=== PATIENT | male | born 1930 | race Caucasian/White ===

== ENCOUNTER 2017-03-20 08:20 | Observation (INO) ==
[2017-03-20 08:49] LABS: Mean Corpuscular Hemoglobin 28.9 pg (28.0-33.3)
[2017-03-20 08:50] LABS: Hematocrit 38.7 % (37.5-50.1); Hemoglobin 13.2 g/dL (12.9-16.9); Immature Platelets 2.6 % (1.1-6.1); Mean Corpuscular HGB Conc 34.1 g/dL (31.6-35.5); Mean Corpuscular Volume 84.7 fL (83.0-100.0); Mean Platelet Volume 9.9 fL (9.4-12.4); Red Blood Count 4.57 M/mcL (4.19-5.50); Red Cell Distribution Width 14.1 % (11.5-14.5)
[2017-03-20 08:52] LABS: Platelet Count 81 K/mcL (140-400)
[2017-03-20 09:02] LABS: Calcium 9.8 mg/dL (8.6-10.8); Potassium 4.2 mEq/L (3.5-4.5)
[2017-03-20 09:07] LABS: INR 1.2; Prothrombin Time 12.6 Seconds (9.4-12.1)
[2017-03-20 09:08] LABS: Lymphocytes # 1.5 K/mcL (0.6-4.6); Monocytes # 0.1 K/mcL (0.0-1.3); Neutrophils # 5.2 K/mcL (1.6-8.9)
[2017-03-20 09:09] LABS: Platelet Estimate Marked Decrease (Normal); Polychromasia 1+ (Not Present)
[2017-03-20 09:10] LABS: Activated Partial Thrombo Time 34.6 Seconds (26.0-36.0)
--- NOTE | 2017-03-20 09:30 | Emergency Department Note ---
Disposition Clinical Impression: Chest pain, rule out acute myocardial infarction Disposition: Admitted As Inpatient Condition: Good Instructions: Chest Pain (ED) Referrals: Pa,Maryanne Baker CNP [Primary Care Provider] - Time of Disposition: 09:20 Chest Pain HPI - General Chief Complaint: ED Chest Pain Stated Complaint: chest pain Time Seen by Provider: 03/20/17 08:28 Source: patient Mode of arrival: ambulatory Limitations: no limitations Vital Signs Reviewed: Yes Nursing Notes Reviewed: Yes - History of Present Illness HPI Narrative: 86-year-old male presents emergency Department with concerns of acute onset chest pain. Patient states pain started acutely today, described as an 8 out of 10 in the center of his chest that did not radiate. Patient states this feels similar to his chest pain prior to his four-vessel CABG. Patient noted pain improved after taking nitroglycerin. He had an eructation and mild nausea but did not vomit. Patient denies diaphoresis. Patient denies recent changes in his medications, fever, chills, abdominal pain, diarrhea. He follows Dr. Henderson for cardiology. Patient takes Plavix and aspirin at home but denies other anticoagulant medications. Patient also notes that he is dyspneic on exertion, only able to walk about 500 feet which is worse for him over the past 2 weeks. Severity scale (1-10): 8 - Related Data Home Medications Medication Instructions Recorded Confirmed Aspirin Enteric Coated [Aspirin EC] 81 mg PO DAILY 11/27/14 02/10/15 Cholecalciferol (Vitamin D3) 5,000 unit PO DAILY 11/27/14 02/10/15 [Vitamin D] Clopidogrel [Plavix] 75 mg PO DAILY 11/27/14 02/10/15 Garlic [Garlic Oil] 1,000 mg PO DAILY 11/27/14 02/10/15 Gemfibrozil [Lopid] 600 mg PO BID 11/27/14 02/10/15 GlyBURIDE 2 mg PO DAILY 11/27/14 02/10/15 Lansoprazole [Prevacid] 30 mg PO DAILY 11/27/14 02/10/15 Levothyroxine Sodium [Synthroid] 100 mcg PO DAILY 11/27/14 02/10/15 Lisinopril [Zestril] 20 mg PO BID 11/27/14 02/10/15 Metoprolol Tartrate [Lopressor] 75 mg PO 1-2XD 11/27/14 02/10/15 NIFEdipine [Nifedipine ER] 30 mg PO DAILY 11/27/14 02/10/15 Nitroglycerin [Nitrostat] 0.4 mg SL [id number] PRN 11/27/14 02/10/15 Pantoprazole Sodium [Protonix] 40 mg PO DAILY 11/27/14 02/10/15 Repaglinide [Prandin] 2 mg PO DAILY 11/27/14 02/10/15 Hydrochlorothiazide [Microzide] 12.5 mg PO DAILY 02/10/15 02/10/15 Atorvastatin [Lipitor] 40 mg PO HS 03/10/15 03/10/15 Allergies Allergy/AdvReac Type Severity Reaction Status Date / Time pseudoephedrine AdvReac Shakiness Verified 03/20/17 08:25 [From Sudafed] triprolidine [From Actifed] AdvReac Shakiness Verified 03/20/17 08:25 All systems ED: reviewed and negative except as stated. Review of Systems: As Per HPI Constitutional: Denies: fever Cardiovascular: Reports: chest pain, dyspnea on exertion. Denies: palpitations Chest Pain PMH - Past Medical History Medical history: Reports: arthritis, cancer, coronary artery disease, diabetes, GERD, hyperlipidemia, hypertension, myocardial infarction, renal disease, thyroid disease Surgical history: Reports: cancer surgery, carotid endarterectomy, coronary bypass (CABG) Psychiatric history: Reports: no psych history - Social History Smoking Status: Former smoker Alcohol use: Reports: none Drug use: Reports: none Physical Exam General: Alert and in no acute distress Skin: Warm, dry, intact Head: Normocephalic and atraumatic Neck: Supple, trachea midline and no tenderness Cardiovascular: RRR, no murmur, normal perfusion Respiratory: CTAB, no wheezing, cough, or respiratory distress Musculoskeletal: Normal strength, no tenderness, swelling or deformity GI: Soft, nontender, nondistended. Bowel sounds present Neuro: A&O to person, place, time and situation. No focal deficits noted on exam Psychiatric: cooperative and appropriate mood and affect. - General Limitations: no limitations General appearance: alert Course Vital Signs Temperature 98 F 03/20/17 08:26 Pulse Rate 64 03/20/17 08:26 Respiratory Rate 20 03/20/17 08:26 Blood Pressure 155/69 03/20/17 08:26 O2 Sat by Pulse Oximetry 97 03/20/17 08:26 Temperature 98 F 03/20/17 08:26 Pulse Rate 64 03/20/17 09:10 Respiratory Rate 18 03/20/17 09:10 Blood Pressure 160/68 03/20/17 09:10 O2 Sat by Pulse Oximetry 98 03/20/17 09:10 Oxygen Delivery Oxygen Delivery Room Air Chest Pain - MDM Narrative Medical decision making narrative: Patient has multiple cardiac risk factors. He will be admitted for further evaluation of his acute chest pain to rule out ACS. - Medical Records Medical records reviewed: Yes I reviewed the patient's medical records. - Lab Data Lab results reviewed: Yes I reviewed the patient's lab results. Result diagrams: 03/20/17 08:39 03/20/17 08:39 Lab Results 03/20/17 03/20/17 03/20/17 Range/Units 08:39 08:39 08:39 WBC 6.9 (4.3-11.1) K/mcL RBC 4.57 (4.19-5.50) M/mcL Hgb 13.2 (12.9-16.9) g/dL Hct 38.7 (37.5-50.1) % MCV 84.7 (83.0-100.0) fL MCH 28.9 (28.0-33.3) pg MCHC 34.1 (31.6-35.5) g/dL RDW 14.1 (11.5-14.5) % Plt Count 81 L (140-400) K/mcL MPV 9.9 (9.4-12.4) fL Seg Neutrophils % 76.0 % Lymphocytes % 22.0 % Monocytes % 2.0 % Neutrophils # 5.2 (1.6-8.9) K/mcL Lymphocytes # 1.5 (0.6-4.6) K/mcL Monocytes # 0.1 (0.0-1.3) K/mcL Platelet Estimate Marked Decrease L (Normal) Immature Plt Fraction 2.6 (1.1-6.1) % Polychromasia 1+ A (Not Present) PT (9.4-12.1) Seconds INR APTT (26.0-36.0) Seconds Sodium 134 L (136-145) mEq/L Potassium 4.2 (3.5-4.5) mEq/L Chloride 101 (98-109) mEq/L Carbon Dioxide 21 (19-29) mEq/L BUN 37 H (8-26) mg/dL Creatinine 1.87 H (0.72-1.25) mg/dL Est GFR ( Amer) 42 L (> 60) Est GFR (Non-Af Amer) 34 L (> 60) BUN/Creatinine Ratio 20 (6-26) Glucose 369 H (70-99) mg/dL Calculated Osmolality 302 H (280-300) Calcium 9.8 (8.6-10.8) mg/dL Troponin I 0.02 (0-0.03) ng/mL Specimen Rejected 03/20/17 03/20/17 Range/Units 08:39 08:55 WBC (4.3-11.1) K/mcL RBC (4.19-5.50) M/mcL Hgb (12.9-16.9) g/dL Hct (37.5-50.1) % MCV (83.0-100.0) fL MCH (28.0-33.3) pg MCHC (31.6-35.5) g/dL RDW (11.5-14.5) % Plt Count (140-400) K/mcL MPV (9.4-12.4) fL Seg Neutrophils % % Lymphocytes % % Monocytes % % Neutrophils # (1.6-8.9) K/mcL Lymphocytes # (0.6-4.6) K/mcL Monocytes # (0.0-1.3) K/mcL Platelet Estimate (Normal) Immature Plt Fraction (1.1-6.1) % Polychromasia (Not Present) PT 12.6 H (9.4-12.1) Seconds INR 1.2 APTT 34.6 (26.0-36.0) Seconds Sodium (136-145) mEq/L Potassium (3.5-4.5) mEq/L Chloride (98-109) mEq/L Carbon Dioxide (19-29) mEq/L BUN (8-26) mg/dL Creatinine (0.72-1.25) mg/dL Est GFR ( Amer) (> 60) Est GFR (Non-Af Amer) (> 60) BUN/Creatinine Ratio (6-26) Glucose (70-99) mg/dL Calculated Osmolality (280-300) Calcium (8.6-10.8) mg/dL Troponin I (0-0.03) ng/mL Specimen Rejected Volume - Radiology Data Radiology results reviewed: Yes I reviewed the patient's radiology results. Heart Score - Score History: Moderately Suspicious EKG: Normal Age: Greater than 65 Risk Factors: Equal/Greater than 3 risk factor or history of atherosclerotic disease Troponin: Less than normal limit HEART Score Total: 5
--- NOTE | 2017-03-20 10:18 | Internal Med History&Physical ---
Date of Encounter: 03/20/17 Time of Encounter: 10:08 Assessment and Plan (1) Chest pain, rule out acute myocardial infarction Current visit: Yes Status: Acute 86/male Patient has ongoing chest pain for more than 48 hours. Extensive cardiac history. Plan: Admit as observation. Cycle troponin. Echocardiogram Cardiac diet. If troponin positive/abnormal echocardiogram: Please call cardiology. If troponin negative/normal echocardiogram: Please let Dr. Henderson note that this patient is hospitalized and please discuss patient with him. (2) CAD (coronary artery disease) Current visit: Yes Status: Acute At the time of examination patient did not have any chest pain. Stable coronary artery disease Qualifiers: Coronary Disease-Associated Artery/Lesion type: [place] artery [place] vs. transplanted heart: [place] heart Associated angina: angina presence unspecified Qualified Code(s): I25.10 - Atherosclerotic heart disease of [place] coronary artery without angina pectoris (3) Hypertension Current visit: Yes Status: Acute Blood pressure is within acceptable range. We will continue to monitor blood pressure very closely. Qualifiers: Hypertension type: essential hypertension Qualified Code(s): I10 - Essential (primary) hypertension (4) Thrombocytopenia Current visit: No Status: Acute Secondary to ITP (5) ITP (idiopathic thrombocytopenic purpura) Current visit: No Status: Acute Stable (6) DVT prophylaxis Current visit: Yes Status: Acute SCD Medical decision making this patient has a moderate to severe risk of worsening in spite of being on appropriate medication due to the underlying complex comorbid issues. Internal Medicine - H&P: HPI Chief complaint: chest pain Admitted From: Emergency Dept Plans for Post Hospital Care: Home History of present illness: 86/M, [place] PCP : AZRA Madden Winn Cardiology: Dr Henderson Brief PMH: arthritis, cancer, coronary artery disease, diabetes, GERD, hyperlipidemia, hypertension, myocardial infarction, renal disease, thyroid disease, carotid endarterectomy, coronary bypass (CABG) HPI: Ongoing chest pain for past 3 days. Central location, associated with radiation to arm and shoulder. Pin releived by NTG and rest. Denies SOB, Abdominal pain, nausea, vomiting or diarrhea. Came to ER for worsening chest pain and restrictive movements in last 2 weeks. Work up in ER: Thrombocytopenia, Elevated Created Creatinine and Glucose, normal EKG and troponin, CXR: WNL Reason for admission : Chest pain to Rule out ACS. Family history : 3 brothers were in [place] Past Med Surg Social Fam HX - Past Medical History Medical history: arthritis, cancer, coronary artery disease, diabetes, GERD, hyperlipidemia, hypertension, myocardial infarction, renal disease, thyroid disease Psychiatric history: no psych history - Past Surgical History Surgical History: cancer surgery, carotid endarterectomy, coronary bypass (CABG) - Social History Smoking Status: Former smoker Smokeless Tobacco Status: No Alcohol use: none Drug use: none Internal Medicine - H&P: Meds Aspirin Enteric Coated [Aspirin EC] 81 mg PO DAILY 11/27/14 [History] Cholecalciferol (Vitamin D3) [Vitamin D] 5,000 unit PO DAILY 11/27/14 [History] Clopidogrel [Plavix] 75 mg PO DAILY 11/27/14 [History] Garlic [Garlic Oil] 1,000 mg PO DAILY 11/27/14 [History] Gemfibrozil [Lopid] 600 mg PO BID 11/27/14 [History] Levothyroxine Sodium [Synthroid] 100 mcg PO DAILY 11/27/14 [History] Metoprolol Tartrate [Lopressor] 75 mg PO 1-2XD 11/27/14 [History] NIFEdipine [Nifedipine ER] 30 mg PO DAILY 11/27/14 [History] Nitroglycerin [Nitrostat] 0.4 mg SL [id number] PRN 11/27/14 [History] Pantoprazole Sodium [Protonix] 40 mg PO DAILY 11/27/14 [History] Hydrochlorothiazide [Microzide] 12.5 mg PO DAILY 02/10/15 [History] Atorvastatin [Lipitor] 40 mg PO HS 03/10/15 [History] Glimepiride [Amaryl] 2 mg PO QPM 03/20/17 [History] Glimepiride [Amaryl] 3 mg PO QAM 03/20/17 [History] Linagliptin [Tradjenta] 5 mg PO DAILY 03/20/17 [History] 3 Allergy/AdvReac Type Severity Reaction Status Date / Time pseudoephedrine AdvReac Shakiness Verified 03/20/17 08:25 [From Sudafed] triprolidine [From Actifed] AdvReac Shakiness Verified 03/20/17 08:25 All Systems PM: A 10-system review of systems was performed and is negative for pertinent findings except as documented above in the HPI. - Constitutional Constitutional: no chills, no fever(s), no night sweats - EENT Eyes: no change in vision, no discharge, no pain, no photophobia Ears: no ear discharge, no ear pain, no tinnitus Nose, mouth and throat: no dysphagia, no nasal discharge, no neck pain, no sore throat - Cardiovascular Cardiovascular ROS IM: chest pain, diaphoresis, lightheadedness, no dyspnea, no palpitations, no syncope - Respiratory Respiratory: no cough, no dyspnea, no wheezing, no excessive phlegm production - Gastrointestinal Gastrointestinal: no abdominal pain, no diarrhea, no hematemesis, no hematochezia, no melena, no nausea, no vomiting - Musculoskeletal Musculoskeletal ROS IM: no numbness, no tingling - Integumentary Integumentary IM: no rash, no unusual bruising - Neurological Neurological ROS: no confusion, no convulsions, no focal weakness, no numbness, no tingling, no tremor(s) - Hematologic/Lymphatic Hematologic/Lymphatic: no easy bruising - Constitutional Vitals: Temp Pulse Resp BP Pulse Ox 98 F 64 18 157/94 98 03/20/17 08:26 03/20/17 09:10 03/20/17 10:01 03/20/17 10:01 03/20/17 09:10 General appearance: Present: A&O X 3, pleasant, no acute distress, answers questions appropriately - Head Head exam: Present: atraumatic, normocephalic - Eye Eye exam: Present: PERRL, conjuntiva pink, sclera anicteric Pupils: Present: PERRL - Neck Neck exam general surgery: Present: supple, trachea midline. Absent: lymphadenopathy - Respiratory Respiratory exam: Present: CTAB. Absent: accessory muscle use, rales, rhonchi, wheezes - Cardiovascular Cardiovascular exam: Present: RRR, +S1, +S2. Absent: diastolic murmur, gallop, rubs, systolic murmur - GI/Abdominal GI/Abdominal exam: Present: normal bowel sounds, soft, no peritoneal signs. Absent: distended, tenderness - Extremities Exam Extremities exam: Present: warm, radial pulses palpable and symmetrical. Absent : calf tenderness, cyanotic, pedal edema - Neurological Exam Neurological exam: Present: CN II-XII intact, oriented X3, no focal deficits. Absent: pronater drift, facial droop, speech deficit - Skin Skin exam: Present: dry, intact Internal Med - H&P Results - Labs CBC & Chem 7: 03/20/17 08:39 03/20/17 08:39
[2017-03-20] MEDS ORDERED: Naloxone 0.4 MG/ML INJ IVP PRN (11:50)
[2017-03-20] MEDS: Nitroglycerin 0.4 MG TAB.SUBL SL SCH (12:47)
[2017-03-20] MEDS ORDERED: Dextrose Gel 15 GM PO PRN ×2 (19:55)
[2017-03-20] MEDS ORDERED: *HR* Dextrose 50 % in Water (Syg) 50 ML SYRINGE IVP PRN (19:55)
[2017-03-20] MEDS ORDERED: D5% in Water 1,000 ML IVC PRN (19:55)
[2017-03-20] MEDS: Insulin LISPRO 300 UNITS/3 ML VIAL SQ SCH (21:01)
[2017-03-21 00:51] LABS: Basophils % 0.7 %; Red Blood Count 4.17 M/mcL (4.19-5.50)
[2017-03-21 00:53] LABS: Eosinophils # 0.4 K/mcL (0.0-0.6); Eosinophils % 7.4 %; Hematocrit 35.4 % (37.5-50.1); Hemoglobin 12.1 g/dL (12.9-16.9); Immature Granulocytes % 0.5 % (0-4); Immature Platelets 3.2 % (1.1-6.1); Lymphocytes # 1.6 K/mcL (0.6-4.6); Lymphocytes % 28.6 %; Mean Corpuscular HGB Conc 34.2 g/dL (31.6-35.5); Mean Corpuscular Volume 84.9 fL (83.0-100.0); Monocytes # 0.4 K/mcL (0.0-1.3); Monocytes % 6.7 %; Neutrophils # 3.1 K/mcL (1.6-8.9); Red Cell Distribution Width 14.1 % (11.5-14.5); Segmented Neutrophils % 56.1 %
[2017-03-21 00:55] LABS: INR 1.2; Prothrombin Time 12.7 Seconds (9.4-12.1)
[2017-03-21 00:57] LABS: Activated Partial Thrombo Time 33.4 Seconds (26.0-36.0)
[2017-03-21 01:06] LABS: Albumin 3.5 g/dL (3.5-5.0); Albumin/Globulin Ratio 1.1 (1.1-2.2); Bilirubin,Total 0.4 mg/dL (0.2-1.2); Calcium 9.5 mg/dL (8.6-10.8); Chol/HDL Ratio 4.9 (0-4.9); Globulin 3.1 g/dL (2.4-3.5); Magnesium 1.9 mg/dL (1.6-2.6); Phosphorous 2.5 mg/dL (2.3-4.7); Potassium 3.5 mEq/L (3.5-4.5); Total Protein 6.6 g/dL (6.0-8.3)
[2017-03-21 01:42] LABS: Platelet Count 73 K/mcL (140-400)
[2017-03-21] MEDS: Aspirin Enteric Coated 81 MG Tablet PO SCH (08:08)
[2017-03-21] MEDS: Insulin LISPRO 300 UNITS/3 ML VIAL SQ SCH ×4 (08:08→20:22)
[2017-03-21] MEDS: hydroCHLOROthiazide 25 MG TABLET PO SCH (08:09)
[2017-03-21] MEDS: NIFEdipine XL (24 HR) 30 MG TAB.ER.24 PO SCH (08:09)
[2017-03-21] MEDS: GARLIC 1000 MG PO SCH (08:10)
[2017-03-21] MEDS: Cholecalciferol (D-3) 1,000 UNIT TABLET PO SCH (08:10)
[2017-03-21] MEDS: Nitroglycerin 0.4 MG TAB.SUBL SL SCH (12:54)
--- NOTE | 2017-03-21 12:56 | Internal Med Progress Note ---
Date of Encounter: 03/21/17 Time of Encounter: 12:54 - Assessment and plan (1) CAD (coronary artery disease) Current Visit: Yes Status: Acute Assessment and plan: hx four-vessel CABG. Now with chest pain that woke him from sleep, similar to previous cardiac event. EKG without acute ST changes, serial troponin negative. Cardiology consulted with advanced age, comorbidities and significant cardiac history. Echocardiogram pending. Qualifiers: Coronary Disease-Associated Artery/Lesion type: [place] artery [place] vs. transplanted heart: [place] heart Associated angina: angina presence unspecified Qualified Code(s): I25.10 - Atherosclerotic heart disease of [place] coronary artery without angina pectoris (2) ITP (idiopathic thrombocytopenic purpura) Current Visit: No Status: Acute Assessment and plan: per hx. PLTs 71 which appeared to be at baseline. (3) Hypertension Current Visit: Yes Status: Acute Assessment and plan: per hx. BP controlled. Continue home BP medication. Monitor BP and titrate PRN Qualifiers: Hypertension type: essential hypertension Qualified Code(s): I10 - Essential (primary) hypertension (4) DVT prophylaxis Current Visit: Yes Status: Acute Assessment and plan: SCD - Subjective Interval history: Seen and examined at bedside. Patient is new to me, information obtained from chart review and patient report. Patient says he feels back to baseline now has not had anymore chest pain. He tells me chest pain woke him from sleep the other night. No shortness of breath. Says he feels back to baseline now. No chest pain or shortness of breath on my exam. - Constitutional Vitals: Temp Pulse Resp BP Pulse Ox 98 F 81 16 121/62 98 03/21/17 11:26 03/21/17 11:26 03/21/17 11:26 03/21/17 11:26 03/21/17 11:26 General appearance: Present: cachectic, A&O X 3, pleasant, no acute distress, answers questions appropriately - Head Head exam: Present: atraumatic, normocephalic - Eye Eye exam: Present: PERRL, conjuntiva pink, sclera anicteric Pupils: Present: PERRL - Neck Neck exam general surgery: Present: supple, trachea midline. Absent: lymphadenopathy - Respiratory Respiratory exam: Present: CTAB. Absent: accessory muscle use, rales, rhonchi, wheezes - Cardiovascular Cardiovascular exam: Present: RRR, +S1, +S2. Absent: diastolic murmur, gallop, rubs, systolic murmur - GI/Abdominal GI/Abdominal exam: Present: normal bowel sounds, soft, no peritoneal signs. Absent: distended, tenderness - Extremities Exam Extremities exam: Present: warm, radial pulses palpable and symmetrical. Absent : calf tenderness, cyanotic, pedal edema - Neurological Exam Neurological exam: Present: CN II-XII intact, oriented X3, no focal deficits. Absent: pronater drift, facial droop, speech deficit - Skin Skin exam: Present: dry, intact Internal Medicine: Result - Labs CBC & Chem 7: 03/21/17 00:20 03/21/17 00:20 Labs: Short CBC 03/21/17 Range/Units 00:20 WBC 5.6 (4.3-11.1) K/mcL Hgb 12.1 L (12.9-16.9) g/dL Hct 35.4 L (37.5-50.1) % Plt Count 73 L (140-400) K/mcL Neutrophils # 3.1 (1.6-8.9) K/mcL BMP 03/21/17 00:20 Sodium 139 Potassium 3.5 Chloride 105 Carbon Dioxide 23 BUN 42 H Creatinine 1.79 H Glucose 167 H Calcium 9.5 Cardiac Enzymes 03/20/17 03/20/17 03/21/17 Range/Units 12:09 17:27 00:20 Troponin I 0.01 0.02 0.02 (0-0.03) ng/mL Liver Function 03/21/17 Range/Units 00:20 Total Bilirubin 0.4 (0.2-1.2) mg/dL AST 15 (5-34) Units/L ALT 12 (0-55) Units/L Alkaline Phosphatase 107 (38-126) Units/L Albumin 3.5 (3.5-5.0) g/dL - ABG Interpretation ABG results: PT/INR, D-dimer PT 12.7 Seconds (9.4-12.1) H 03/21/17 00:20 Consult Discharge Plan - Plan Referrals: Pa,Maryanne Baker CNP [Primary Care Provider] -
[2017-03-22 04:54] LABS: Hemoglobin 11.7 g/dL (12.9-16.9)
[2017-03-22 04:55] LABS: Immature Platelets 2.7 % (1.1-6.1); Mean Corpuscular HGB Conc 33.4 g/dL (31.6-35.5); Mean Corpuscular Hemoglobin 28.7 pg (28.0-33.3); Mean Corpuscular Volume 85.8 fL (83.0-100.0); Red Blood Count 4.08 M/mcL (4.19-5.50)
[2017-03-22 04:57] LABS: Calcium 9.5 mg/dL (8.6-10.8)
[2017-03-22] MEDS ORDERED: Regadenoson 0.4 MG/5 ML SYRINGE IVP ONE (06:34)
[2017-03-22] MEDS: NIFEdipine XL (24 HR) 30 MG TAB.ER.24 PO SCH (10:25)
[2017-03-22] MEDS: Aspirin Enteric Coated 81 MG Tablet PO SCH (10:27)
[2017-03-22] MEDS: GARLIC 1000 MG PO SCH (10:28)
[2017-03-22] MEDS: Cholecalciferol (D-3) 1,000 UNIT TABLET PO SCH (10:28)
[2017-03-22] MEDS: Insulin LISPRO 300 UNITS/3 ML VIAL SQ SCH ×2 (10:31→12:56)
[2017-03-22] MEDS: hydroCHLOROthiazide 25 MG TABLET PO SCH (10:35)
--- NOTE | 2017-03-22 12:09 | Internal Med Progress Note ---
Date of Encounter: 03/22/17 Time of Encounter: 12:06 - Assessment and plan (1) CAD (coronary artery disease) Current Visit: Yes Status: Acute Assessment and plan: hx four-vessel CABG. Now with chest pain that woke him from sleep, similar to previous cardiac event. EKG without acute ST changes, serial troponin negative. Stress test with large size, moderate to severe intensity mostly fixed perfusion defect in the inferior and inferior lateral segments; these findings are consistent with prior infarct. Stress test also showed a mild reversibility of the entire inferior lateral segments consistent with [place]- infarct ischemia. Patient is agreeable to cardiology consultation. Continue home ASA, Plavix, BB, statin. Qualifiers: Coronary Disease-Associated Artery/Lesion type: [place] artery [place] vs. transplanted heart: [place] heart Associated angina: angina presence unspecified Qualified Code(s): I25.10 - Atherosclerotic heart disease of [place] coronary artery without angina pectoris (2) ITP (idiopathic thrombocytopenic purpura) Current Visit: No Status: Acute Assessment and plan: per hx. PLTs 71 which appeared to be at baseline. (3) Hypertension Current Visit: Yes Status: Acute Assessment and plan: per hx. BP controlled. Continue home BP medication. Monitor BP and titrate PRN Qualifiers: Hypertension type: essential hypertension Qualified Code(s): I10 - Essential (primary) hypertension (4) CKD (chronic kidney disease) Current Visit: Yes Status: Acute Assessment and plan: per hx. Cr seems to be at baseline. Avoid nephrotoxic agents as possible. Monitor repeat renal function. Qualifiers: Chronic kidney disease stage: stage 3 (moderate) Qualified Code(s): N18.3 - Chronic kidney disease, stage 3 (moderate) (5) DVT prophylaxis Current Visit: Yes Status: Acute Assessment and plan: SCD - Subjective Interval history: Seen and examined at bedside. Still says he feels at baseline and would like to go home if possible today. I reviewed stress test results with him and he is agreeable to stay for cardiology consultation discussed the possibility of a left heart catheterization and he would like to proceed with left heart catheter if that was warranted. Besides wanting to go home, he has no other complaints. - Constitutional Vitals: Temp Pulse Resp BP Pulse Ox 97.5 F L 77 16 153/70 99 03/22/17 09:24 03/22/17 09:24 03/22/17 09:24 03/22/17 09:24 03/22/17 09:24 General appearance: Present: cachectic, A&O X 3, pleasant, no acute distress, answers questions appropriately - Head Head exam: Present: atraumatic, normocephalic - Eye Eye exam: Present: PERRL, conjuntiva pink, sclera anicteric Pupils: Present: PERRL - Neck Neck exam general surgery: Present: supple, trachea midline. Absent: lymphadenopathy - Respiratory Respiratory exam: Present: CTAB. Absent: accessory muscle use, rales, rhonchi, wheezes - Cardiovascular Cardiovascular exam: Present: RRR, +S1, +S2. Absent: diastolic murmur, gallop, rubs, systolic murmur - GI/Abdominal GI/Abdominal exam: Present: normal bowel sounds, soft, no peritoneal signs. Absent: distended, tenderness - Extremities Exam Extremities exam: Present: warm, radial pulses palpable and symmetrical. Absent : calf tenderness, cyanotic, pedal edema - Neurological Exam Neurological exam: Present: CN II-XII intact, oriented X3, no focal deficits. Absent: pronater drift, facial droop, speech deficit - Skin Skin exam: Present: dry, intact Internal Medicine: Result - Labs CBC & Chem 7: 03/22/17 03:56 03/22/17 03:56 Labs: Short CBC 03/22/17 Range/Units 03:56 WBC 5.3 (4.3-11.1) K/mcL Hgb 11.7 L (12.9-16.9) g/dL Hct 35.0 L (37.5-50.1) % Plt Count 65 L (140-400) K/mcL BMP 03/22/17 03:56 Sodium 139 Potassium 4.0 Chloride 107 Carbon Dioxide 23 BUN 49 H Creatinine 1.87 H Glucose 200 H Calcium 9.5 - ABG Interpretation ABG results: PT/INR, D-dimer PT 12.7 Seconds (9.4-12.1) H 03/21/17 00:20 - Impressions Impressions Echocardiogram 03/20/17 11:55 Impressions: LVEF 60%. Normal LV chamber size, wall thickness and function. Mild left ventricular diastolic dysfunction. Atypical septal motion consistent with post-operative status. Normal right ventricular structure and function. Unable to estimate RVSP due to lack of TR jet. No significant valvular dysfunction. Left Ventricular Wall Motion: Rest Echo Findings All wall segments showed normal motion. Findings: Study Quality * Technically adequate exam. ECG Findings * Normal sinus rhythm. Left Ventricle * LVEF 60%. * Normal LV chamber size, wall thickness and function. * Mild left ventricular diastolic dysfunction. * Atypical septal motion consistent with post-operative status. Right Ventricle * Normal right ventricular structure and function. Left Atrium * Normal left atrial size. Right Atrium * Normal right atrial size. Interatrial Septum * Interatrial septum not well evaluated. Aortic Valve * Moderately thickened aortic valve leaflets. * No aortic regurgitation. * No aortic stenosis. Mitral Valve * Normal mitral valve structure and function. * No mitral stenosis. * No mitral regurgitation. Tricuspid Valve * Normal tricuspid valve structure and function. * No tricuspid regurgitation. * Unable to estimate RVSP due to lack of TR jet. Pulmonic Valve * Normal pulmonic valve structure and function. * No pulmonic regurgitation. Aorta * Normally sized aortic root. Pericardium * The pericardium appears normal. IVC * The IVC is not well evaluated. Pulmonary Artery * Normal visualized portions of the main pulmonary artery. Consult Discharge Plan - Plan Referrals: Maryanne Winn DETAIL TECHNICIAN [Primary Care Provider] -
[2017-03-22] MEDS: Nitroglycerin 0.4 MG TAB.SUBL SL SCH (12:57)
--- NOTE | 2017-03-22 14:57 | Discharge Summary ---
Date of Encounter: 03/22/17 Time of Encounter: 14:51 - Discharge Diagnosis (1) CAD (coronary artery disease) Status: Acute Qualifiers: Coronary Disease-Associated Artery/Lesion type: [place] artery [place] vs. transplanted heart: [place] heart Associated angina: angina presence unspecified Qualified Code(s): I25.10 - Atherosclerotic heart disease of [place] coronary artery without angina pectoris (2) ITP (idiopathic thrombocytopenic purpura) Status: Acute (3) Hypertension Status: Acute Qualifiers: Hypertension type: essential hypertension Qualified Code(s): I10 - Essential (primary) hypertension (4) CKD (chronic kidney disease) Status: Acute Qualifiers: Chronic kidney disease stage: stage 3 (moderate) Qualified Code(s): N18.3 - Chronic kidney disease, stage 3 (moderate) (5) DVT prophylaxis Status: Acute - Discharge Medications Prescriptions: Isosorbide MONOnitrate (24 HR) [Imdur] 30 mg PO DAILY #30 tab.er.24h Home Medications: Aspirin Enteric Coated [Aspirin EC] 81 mg PO DAILY 11/27/14 [History] Cholecalciferol (Vitamin D3) [Vitamin D] 5,000 unit PO DAILY 11/27/14 [History] Clopidogrel [Plavix] 75 mg PO DAILY 11/27/14 [History] Garlic [Garlic Oil] 1,000 mg PO DAILY 11/27/14 [History] Gemfibrozil [Lopid] 600 mg PO BID 11/27/14 [History] Levothyroxine Sodium [Synthroid] 100 mcg PO DAILY 11/27/14 [History] Metoprolol Tartrate [Lopressor] 75 mg PO 1-2XD 11/27/14 [History] NIFEdipine [Nifedipine ER] 30 mg PO DAILY 11/27/14 [History] Nitroglycerin [Nitrostat] 0.4 mg SL [id number] PRN 11/27/14 [History] Pantoprazole Sodium [Protonix] 40 mg PO DAILY 11/27/14 [History] Hydrochlorothiazide [Microzide] 12.5 mg PO DAILY 02/10/15 [History] Atorvastatin [Lipitor] 40 mg PO HS 03/10/15 [History] Glimepiride [Amaryl] 2 mg PO QPM 03/20/17 [History] Glimepiride [Amaryl] 3 mg PO QAM 03/20/17 [History] Linagliptin [Tradjenta] 5 mg PO DAILY 03/20/17 [History] Isosorbide MONOnitrate (24 HR) [Imdur] 30 mg PO DAILY #30 tab.er.24h 03/22/17 [ Rx] Allergies/Adverse Reactions: 3 Allergy/AdvReac Type Severity Reaction Status Date / Time pseudoephedrine AdvReac Shakiness Verified 03/20/17 08:25 [From Sudafed] triprolidine [From Actifed] AdvReac Shakiness Verified 03/20/17 08:25 Procedures/tests Complete & Pending: Procedures Performed prior 72 hours Category Date Time Status NM anny perf SPECT multi [NM] Routine Exams 03/22/17 06:00 Taken EV echocardiogram Routine Y 03/20/17 11:55 Completed SP pharm nuclear stress Routine Y 03/22/17 07:10 Completed Date of admission: 03/20/17 09:48 Primary care physician: Maryanne Winn CNP Consults: 03/22/17 12:03 Consult to Cardiology [CONS] Routine Comment: Consulting Provider: Delaeny Del Rosario Reason for Consult: Abnormal stress test Call Completed: Yes Discharging clinician: Marzena Astorga Anticipated date of discharge: 03/22/17 - Patient Status Disposition: Home, Self-Care Condition: Good Functional capacity at discharge: independent ambulation Overall status at discharge: patient is progressing back to baseline - Discharge Instructions Instructions: Coronary Artery Disease (DC), Isosorbide Mononitrate (By mouth) Follow Up With: Maryanne Winn CNP [Primary Care Provider] - - Diet and Activity Activity: increase activity as tolerated Diet: low fat, low cholesterol Hospital course: Mr. Winn is a 86 year old male - Time Spent with Patient Total time spent providing and/or coordinating discharge services: - Constitutional Vitals: Temp Pulse Resp BP Pulse Ox 97.4 F L 79 16 182/71 99 03/22/17 12:24 03/22/17 12:24 03/22/17 12:24 03/22/17 12:24 03/22/17 12:24 General appearance: Present: cachectic, A&O X 3, pleasant, no acute distress, answers questions appropriately
--- NOTE | 2017-03-22 15:52 | Cardiology Consult Note ---
<Lambert Jones - Last Filed: 03/22/17 15:44> Date of Encounter: 03/22/17 Time of Encounter: 15:15 Assessment and Plan (1) Abnormal stress test Current Visit: Yes Status: Acute Patient presents with chest pain waking him from his sleep. Pain not like previous SC. Troponin negative x3. EKG with no acute ST changes. Stress test: Gated EF = 72%. Large sized, moderate to severe intensity, mostly fixed perfusion defect involving the inferior and inferolateral segments. 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 There is mild reversibility of the entire inferolateral segments (SDS 3) consistent with [place]- infarct ischemia. TTE shows:LVEF 60%. Normal LV chamber size, wall thickness and function. Mild left ventricular diastolic dysfunction. Atypical septal motion consistent with post-operative status. Normal right ventricular structure and function. Unable to estimate RVSP due to lack of TR jet. No significant valvular dysfunction. H/o CABG and previous PCI. Last LHC in 2011. I discussed stress test and TTE results with patient and daughter. Mild coral- infart ischemia seen. LHC vs medical management discussed. 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 Recommend imdur 30 mg daily. Restart prilosec. Continue asa,statin, and bb, and procardia. (2) CAD (coronary artery disease) Current Visit: Yes Status: Acute H/o 3V CABG and PCI in 2011. LHC in 2012 showed 1/3 patent bypass grafts. Zheng-LAD was patent. SVG - 1st om occluded. SVG to PDA occluded. He received JETT to the 1st OM and m LCX artery. Continue asa, statin, and bb. Add imdur. Qualifiers: Coronary Disease-Associated Artery/Lesion type: [place] artery [place] vs. transplanted heart: [place] heart Associated angina: angina presence unspecified Qualified Code(s): I25.10 - Atherosclerotic heart disease of [place] coronary artery without angina pectoris Discussion w patient/family: The assessment and plan as outlined above was discussed with the patient and/or family members who expressed understanding and agreement. All questions were answered. Thank you for involving us in the care of your patient. Please call with any questions. History of Present Illness Consult date: 03/22/17 Requesting physician: Marzena Astorga Consult reason: Chest pain Chief complaint: Chest pain History of present illness: Mr. Winn is a 86 year old male with a history of 3V CABG in 2010, SC and PCI in 2011, HTN, HLD, DM type II, CKD, and thrombocytopenia who presented with chest pain waking him from his sleep at 2:00 am. He reports having a midsternal dull ache. Denies associated symptoms. He took one SL NTG without relief and had his daughter bring him to the ED. His pain relieved after he arrived to the ER. States his pain was not like his previous heart attack. His work-up included troponin that was negative x3. EKG showed no acute ST changes. TTE showed preserved LV function and no SWMA. His stress test was found to be abnormal prompting cardiology consult. Past Med Surg Social Fam HX - Past Medical History Medical history: arthritis, cancer, coronary artery disease, diabetes, GERD, hyperlipidemia, hypertension, myocardial infarction, renal disease, thyroid disease Psychiatric history: no psych history - Past Surgical History Surgical History: cancer surgery, carotid endarterectomy, coronary bypass (CABG) - Social History Smoking Status: Former smoker Smokeless Tobacco Status: No Alcohol use: none Drug use: none Medications and Allergies Aspirin Enteric Coated [Aspirin EC] 81 mg PO DAILY 11/27/14 [History] Cholecalciferol (Vitamin D3) [Vitamin D] 5,000 unit PO DAILY 11/27/14 [History] Clopidogrel [Plavix] 75 mg PO DAILY 11/27/14 [History] Garlic [Garlic Oil] 1,000 mg PO DAILY 11/27/14 [History] Gemfibrozil [Lopid] 600 mg PO BID 11/27/14 [History] Levothyroxine Sodium [Synthroid] 100 mcg PO DAILY 11/27/14 [History] Metoprolol Tartrate [Lopressor] 75 mg PO 1-2XD 11/27/14 [History] NIFEdipine [Nifedipine ER] 30 mg PO DAILY 11/27/14 [History] Nitroglycerin [Nitrostat] 0.4 mg SL [id number] PRN 11/27/14 [History] Pantoprazole Sodium [Protonix] 40 mg PO DAILY 11/27/14 [History] Hydrochlorothiazide [Microzide] 12.5 mg PO DAILY 02/10/15 [History] Atorvastatin [Lipitor] 40 mg PO HS 03/10/15 [History] Glimepiride [Amaryl] 2 mg PO QPM 03/20/17 [History] Glimepiride [Amaryl] 3 mg PO QAM 03/20/17 [History] Linagliptin [Tradjenta] 5 mg PO DAILY 03/20/17 [History] Isosorbide MONOnitrate (24 HR) [Imdur] 30 mg PO DAILY #30 tab.er.24h 03/22/17 [ Rx] 3 Allergy/AdvReac Type Severity Reaction Status Date / Time pseudoephedrine AdvReac Shakiness Verified 03/20/17 08:25 [From Sudafed] triprolidine [From Actifed] AdvReac Shakiness Verified 03/20/17 08:25 All Systems Review: A 10-system review of systems was performed and is negative for pertinent findings except as documented above in the HPI. Physical Examination Vital Signs, Last 4 Hours Temp Pulse Resp BP Pulse Ox 03/22/17 12:24 97.4 F L 79 16 145/71 99 General: Conversant, No Apparent Distress HEENT: Atraumatic, Normocephaly, Mucus Membranes Moist Neck: No JVD, Normal carotid pulses Cardiac: Reg Rate and Rhythm, Normal S1 and S2, No Murmur Lungs: Normal Breath Sounds, No Wheeze, Rales, Rhonchi Neuro: Alert and responsive, No focal deficits noted Abdomen: Soft, Non-Tender Skin: No rashes noted on visualized skin Musculoskeletal: No Chest Wall Tenderness Extremities: No Clubbing, No Cyanosis, No Edema, Normal Pulses Results 03/22/17 03:56 03/22/17 03:56 Lab Results 03/22/17 03/22/17 03:56 03:56 WBC 5.3 Hgb 11.7 L Hct 35.0 L Plt Count 65 L Sodium 139 Potassium 4.0 Chloride 107 Carbon Dioxide 23 BUN 49 H Creatinine 1.87 H Glucose 200 H Calcium 9.5 Chest X-Ray 03/20/17 08:29 IMPRESSION: No acute cardiopulmonary process. D/ / 03/20/2017 10:02:39 Jamison Khan MD / [facility] Interpreting Provider: Jamison Khan MD Echocardiogram 03/20/17 11:55 Impressions: LVEF 60%. Normal LV chamber size, wall thickness and function. Mild left ventricular diastolic dysfunction. Atypical septal motion consistent with post-operative status. Normal right ventricular structure and function. Unable to estimate RVSP due to lack of TR jet. No significant valvular dysfunction. Left Ventricular Wall Motion: Rest Echo Findings All wall segments showed normal motion. - Imaging and Cardiology Stress Test: report reviewed Echo: report reviewed - EKG Interpretation EKG results cardiology: personally reviewed Consult Discharge Plan - Plan Instructions: Isosorbide Mononitrate (By mouth), Coronary Artery Disease (DC) Referrals: Maryanne Winn CNP [Primary Care Provider] - Prescriptions: Isosorbide MONOnitrate (24 HR) [Imdur] 30 mg PO DAILY #30 tab.er.24h <Lazaro Ren - Last Filed: 03/22/17 17:06> Date of Encounter: 03/22/17 - Attending Attestation I have personally performed a face to face evaluation on this patient. I have reviewed and agree with the care plan. History and Exam by me shows: Admitted with chest pain, abnormal stress test today. He does not want heart cath, wants medical mgmt. only. Assessment and Plan Discussion w patient/family: The assessment and plan as outlined above was discussed with the patient and/or family members who expressed understanding and agreement. All questions were answered. Thank you for involving us in the care of your patient. Please call with any questions. History of Present Illness History of present illness: Mr. Winn is a 86 year old male All Systems Review: A 10-system review of systems was performed and is negative for pertinent findings except as documented above in the HPI. Physical Examination Vital Signs, Last 4 Hours Temp Pulse Resp BP Pulse Ox 03/22/17 16:05 97.5 F L 61 16 147/58 98 Results 03/22/17 03:56 03/22/17 03:56 Lab Results 03/22/17 03/22/17 03:56 03:56 WBC 5.3 Hgb 11.7 L Hct 35.0 L Plt Count 65 L Sodium 139 Potassium 4.0 Chloride 107 Carbon Dioxide 23 BUN 49 H Creatinine 1.87 H Glucose 200 H Calcium 9.5
[2017-03-22 16:06] VITALS: BP 147/58
--- NOTE | 2017-03-23 15:41 | Electrocardiograph Report ---
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
== END 2017-03-22 18:30 | disposition home or self-care (01) ==
LOC: EMEROO 08:20 → 3BNU 08:20
PROVIDERS: ADMIT Internal Medicine; ATTEND Registered Nurse

== ENCOUNTER 2018-06-02 18:39 | Inpatient (IN) ==
--- NOTE | 2018-06-02 19:02 | Emergency Department Note ---
Disposition Clinical Impression: Weakness UTI (urinary tract infection) Qualifiers: Urinary tract infection type: site unspecified Hematuria presence: without hematuria Qualified Code(s): N39.0 - Urinary tract infection, site not specified Disposition: Admitted As Inpatient Condition: Fair [facility] Care Provider[facility] - Forms: ED Satisfaction Letter Time of Disposition: 20:13 General Adult HPI - General Chief complaint: ED Nausea/Vomiting/Diarrhea Stated complaint: Weakness Time Seen by Provider: 06/02/18 18:53 Source: EMS Limitations: no limitations - History of Present Illness Pain Scale: 0 - Related Data Home Medications Medication Instructions Recorded Confirmed Cholecalciferol (D-3) [Vitamin D] 1,000 unit PO DAILY 04/03/18 04/21/18 Finasteride [Proscar] 5 mg PO DAILY 04/03/18 04/21/18 Furosemide [Lasix] 40 mg PO DAILY 04/03/18 04/21/18 Guaifenesin [Mucus Relief] 400 mg PO BID PRN 04/03/18 04/21/18 Insulin Glargine,Hum.rec.anlog 20 unit SQ HS 04/03/18 04/21/18 [Basaglar Kwikpen U-100] Levothyroxine [Synthroid] 100 mcg PO DAILY 04/03/18 04/21/18 Lidocaine Patch [Lidoderm 5% patch] 1 patch TP DAILY 04/03/18 04/21/18 Metoprolol [Lopressor] 75 mg PO BID 04/03/18 04/21/18 NIFEdipine [Adalat cc] 30 mg PO DAILY 04/03/18 04/21/18 Pantoprazole Sodium [Protonix] 40 mg PO DAILY 04/03/18 04/21/18 Potassium Chloride [K-Tab ER] 10 meq PO DAILY 04/03/18 04/21/18 Atorvastatin [Lipitor] 40 mg PO HS 04/21/18 04/21/18 Insulin ASPART [NovoLOG] 11 unit SQ TID 04/21/18 04/21/18 Melatonin [Melatin] 3 mg PO HS 04/21/18 04/21/18 Tamsulosin HCl [Flomax] 0.4 mg PO HS 04/21/18 04/21/18 Previous Rx's Medication Instructions Recorded Aspirin 81 mg PO DAILY #30 tab.chew 04/23/18 Clopidogrel Bisulfate [Plavix] 75 mg PO DAILY #30 tablet 04/23/18 Isosorbide MONOnitrate (24 HR) 60 mg PO DAILY #30 tab.er.24h 04/23/18 [Imdur] Allergies Allergy/AdvReac Type Severity Reaction Status Date / Time pseudoephedrine AdvReac Shakiness Verified 04/03/18 10:27 [From Sudafed] triprolidine [From Actifed] AdvReac Shakiness Verified 04/03/18 10:27 Past Medical History - Past Medical History Medical history: Reports: arthritis, cancer, coronary artery disease, diabetes, GERD, hyperlipidemia, hypertension, myocardial infarction, renal disease, thyroid disease Surgical history: Reports: cancer surgery, carotid endarterectomy, coronary bypass (CABG) Psychiatric history: Reports: no psych history - Social History Smoking Status: Former smoker Smokeless Tobacco Status: No Alcohol use: Reports: none Drug use: Reports: none Physical Exam - General Limitations: no limitations General appearance: alert, in no apparent distress Course Vital Signs Temperature 99.1 F 06/02/18 18:42 Pulse Rate 73 06/02/18 18:42 Respiratory Rate 22 06/02/18 18:42 Blood Pressure 153/67 06/02/18 18:42 O2 Sat by Pulse Oximetry 100 06/02/18 18:42 Temperature 99.3 F 06/02/18 19:59 Pulse Rate 71 06/02/18 19:59 Respiratory Rate 20 06/02/18 19:59 Blood Pressure 119/93 06/02/18 19:59 O2 Sat by Pulse Oximetry 99 06/02/18 19:59 Oxygen Delivery Oxygen Delivery Room Air Medical Decision Making - Lab Data Result diagrams: 06/02/18 19:07 06/02/18 19:07 Lab Results 06/02/18 06/02/18 06/02/18 Range/Units 19:07 19:07 19:07 WBC 5.8 (4.3-11.1) K/mcL RBC 3.64 L (4.19-5.50) M/mcL Hgb 10.1 L (12.9-16.9) g/dL Hct 30.4 L (37.5-50.1) % MCV 83.5 (83.0-100.0) fL MCH 27.7 L (28.0-33.3) pg MCHC 33.2 (31.6-35.5) g/dL RDW 15.3 H (11.5-14.5) % Plt Count 69 L (140-400) K/mcL MPV 9.0 L (9.4-12.4) fL Immature Gran % 0.3 (0-4) % Seg Neutrophils % 78.8 % Lymphocytes % 14.4 % Monocytes % 5.9 % Eosinophils % 0.3 % Basophils % 0.3 % Neutrophils # 4.6 (1.6-8.9) K/mcL Lymphocytes # 0.8 (0.6-4.6) K/mcL Monocytes # 0.3 (0.0-1.3) K/mcL Eosinophils # 0.0 (0.0-0.6) K/mcL Basophils # 0.0 (0.0-0.2) K/mcL Immature Plt Fraction 1.3 (1.1-6.1) % Sodium 138 (136-145) mEq/L Potassium 3.8 (3.5-5.1) mEq/L Chloride 100 (98-107) mEq/L Carbon Dioxide 26 (23-29) mEq/L BUN 31 H (8-23) mg/dL Creatinine 1.82 H (0.70-1.30) mg/dL Est GFR ( Amer) 43 L (> 60) Est GFR (Non-Af Amer) 35 L (> 60) BUN/Creatinine Ratio 17 (6-26) Glucose 191 H (70-105) mg/dL Calculated Osmolality 298 (280-300) Lactic Acid 0.9 (0.5-2.2) mmol/L Calcium 9.2 (8.6-10.3) mg/dL Total Bilirubin 1.1 H (0.3-1.0) mg/dL AST 20 (13-39) Units/L ALT 19 (7-52) Units/L Alkaline Phosphatase 151 H (34-104) Units/L Creatine Kinase 32 (30-223) Units/L Troponin I 0.06 H* (< 0.04) ng/mL Serum Total Protein 6.6 (6.4-8.9) g/dL Albumin 4.1 (3.5-5.7) g/dL Globulin 2.5 (2.4-3.5) g/dL Albumin/Globulin Ratio 1.6 (1.1-2.2) Urine Color (Yellow) Urine Clarity (Clear) Urine pH (5.0-8.0) pH Units Ur Specific [place] (1.010-1.025) Urine Protein (Neg-Trace) mg/dL Urine Glucose (UA) (Normal) mg/dL Urine Ketones (Negative) mg/dL Urine Blood (Negative) Urine Nitrite (Negative) Urine Bilirubin (Negative) Urine Urobilinogen (Normal) mg/dL Ur Leukocyte Esterase (Negative) Urine Microscopic RBC (0-3) per hpf Urine Microscopic WBC (0-3) per hpf Ur Squamous Epith Cells (None-Few) per lpf Urine Bacteria (None-Few) per hpf Hyaline Casts Urine Yeast Ur Culture Indicated? (NO) 06/02/18 Range/Units 19:27 WBC (4.3-11.1) K/mcL RBC (4.19-5.50) M/mcL Hgb (12.9-16.9) g/dL Hct (37.5-50.1) % MCV (83.0-100.0) fL MCH (28.0-33.3) pg MCHC (31.6-35.5) g/dL RDW (11.5-14.5) % Plt Count (140-400) K/mcL MPV (9.4-12.4) fL Immature Gran % (0-4) % Seg Neutrophils % % Lymphocytes % % Monocytes % % Eosinophils % % Basophils % % Neutrophils # (1.6-8.9) K/mcL Lymphocytes # (0.6-4.6) K/mcL Monocytes # (0.0-1.3) K/mcL Eosinophils # (0.0-0.6) K/mcL Basophils # (0.0-0.2) K/mcL Immature Plt Fraction (1.1-6.1) % Sodium (136-145) mEq/L Potassium (3.5-5.1) mEq/L Chloride (98-107) mEq/L Carbon Dioxide (23-29) mEq/L BUN (8-23) mg/dL Creatinine (0.70-1.30) mg/dL Est GFR ( Amer) (> 60) Est GFR (Non-Af Amer) (> 60) BUN/Creatinine Ratio (6-26) Glucose (70-105) mg/dL Calculated Osmolality (280-300) Lactic Acid (0.5-2.2) mmol/L Calcium (8.6-10.3) mg/dL Total Bilirubin (0.3-1.0) mg/dL AST (13-39) Units/L ALT (7-52) Units/L Alkaline Phosphatase (34-104) Units/L Creatine Kinase (30-223) Units/L Troponin I (< 0.04) ng/mL Serum Total Protein (6.4-8.9) g/dL Albumin (3.5-5.7) g/dL Globulin (2.4-3.5) g/dL Albumin/Globulin Ratio (1.1-2.2) Urine Color Yellow (Yellow) Urine Clarity Turbid A (Clear) Urine pH 6.5 (5.0-8.0) pH Units Ur Specific [place] 1.008 L (1.010-1.025) Urine Protein 30 H (Neg-Trace) mg/dL Urine Glucose (UA) Normal (Normal) mg/dL Urine Ketones Negative (Negative) mg/dL Urine Blood Moderate H (Negative) Urine Nitrite Negative (Negative) Urine Bilirubin Negative (Negative) Urine Urobilinogen Normal (Normal) mg/dL Ur Leukocyte Esterase Large H (Negative) Urine Microscopic RBC 5-15 H (0-3) per hpf Urine Microscopic WBC TNTC H (0-3) per hpf Ur Squamous Epith Cells Few (None-Few) per lpf Urine Bacteria Many H (None-Few) per hpf Hyaline Casts Test Not Performed Urine Yeast Test Not Performed Ur Culture Indicated? YES A (NO) Attestation Statement - Attestation Attestation: I examined this patient and my medical decision-making was reviewed with the Resident Physician. I agree with the documented findings, disposition and treatment plan as described except to the extent set forth below. Patient presents to the emergency department with a chief complaint of a fall. Patient's son found him on the bathroom floor home. Son states he lives home alone and they are uncomfortable with him going back to this environment. He was covered in feces. Recent admission for an ME about a month ago. [facility] so he was transported here. Patient denies any pain at this time. He states he just feels generally weak. On examination he is awake and alert pleasant and interactive. Heart is regular. Lungs clear. He has not had ecchymosis to the right upper anterior chest wall. No crepitus. Minimally tender. Abdomen soft. Plan. Denies weakness workup and head CT. CPK. Likely admission as patient is unsafe for discharge back to his living environment. Patient was UTI. Troponin 0.06. We will give her an aspirin. He is not having chest pain. Patient will be admitted. Chest X-Ray 06/02/18 18:53 IMPRESSION: Linear infiltrates in the left base similar to the previous exam could represent scarring or fibrosis. Otherwise, stable chest D/ / Asif Torres MD / Asif Torres MD Interpreting Provider: Asif Torres MD
--- NOTE | 2018-06-02 19:03 | Emergency Department Note ---
Disposition Clinical Impression: Weakness UTI (urinary tract infection) Qualifiers: Urinary tract infection type: site unspecified Hematuria presence: without hematuria Qualified Code(s): N39.0 - Urinary tract infection, site not specified Disposition: Still a Patient Condition: Fair [facility] - Forms: ED Satisfaction Letter Time of Disposition: 20:47 General Adult HPI - General Chief complaint: ED Nausea/Vomiting/Diarrhea Stated complaint: Weakness Time Seen by Provider: 06/02/18 18:53 Source: patient, EMS Mode of arrival: EMS Limitations: no limitations Nursing Notes Reviewed: Yes Vital Signs Reviewed: Yes - History of Present Illness HPI Narrative: Pt is an 87M presenting for weakness and fall subsequent to weakness earlier today. He states that he got tripped up in the bathroom between his walker and the linoleum and fell onto his bottom. He is also endorsing some nausea that happened anytime he stood up today, as well as some dry heaves but not actual vomiting. Pt states when he fell onto the floor, he could not get up off the floor for approx "45 minutes". He is endorsing a non productive cough for the last several weeks, as well as some urinary frequency today where he had to use the restroom every 45 minutes. Pain Scale: 0 - Related Data Home Medications Medication Instructions Recorded Confirmed Cholecalciferol (D-3) [Vitamin D] 1,000 unit PO DAILY 04/03/18 04/21/18 Finasteride [Proscar] 5 mg PO DAILY 04/03/18 04/21/18 Furosemide [Lasix] 40 mg PO DAILY 04/03/18 04/21/18 Guaifenesin [Mucus Relief] 400 mg PO BID PRN 04/03/18 04/21/18 Insulin Glargine,Hum.rec.anlog 20 unit SQ HS 04/03/18 04/21/18 [Basaglar Kwikpen U-100] Levothyroxine [Synthroid] 100 mcg PO DAILY 04/03/18 04/21/18 Lidocaine Patch [Lidoderm 5% patch] 1 patch TP DAILY 04/03/18 04/21/18 Metoprolol [Lopressor] 75 mg PO BID 04/03/18 04/21/18 NIFEdipine [Adalat cc] 30 mg PO DAILY 04/03/18 04/21/18 Pantoprazole Sodium [Protonix] 40 mg PO DAILY 04/03/18 04/21/18 Potassium Chloride [K-Tab ER] 10 meq PO DAILY 04/03/18 04/21/18 Atorvastatin [Lipitor] 40 mg PO HS 04/21/18 04/21/18 Insulin ASPART [NovoLOG] 11 unit SQ TID 04/21/18 04/21/18 Melatonin [Melatin] 3 mg PO HS 04/21/18 04/21/18 Tamsulosin HCl [Flomax] 0.4 mg PO HS 04/21/18 04/21/18 Previous Rx's Medication Instructions Recorded Aspirin 81 mg PO DAILY #30 tab.chew 04/23/18 Clopidogrel Bisulfate [Plavix] 75 mg PO DAILY #30 tablet 04/23/18 Isosorbide MONOnitrate (24 HR) 60 mg PO DAILY #30 tab.er.24h 04/23/18 [Imdur] Allergies Allergy/AdvReac Type Severity Reaction Status Date / Time pseudoephedrine AdvReac Shakiness Verified 04/03/18 10:27 [From Sudafed] triprolidine [From Actifed] AdvReac Shakiness Verified 04/03/18 10:27 All systems ED: reviewed and negative except as stated. Review of Systems: As Per HPI Constitutional: Reports: weakness. Denies: fever, chills Cardiovascular: Denies: chest pain Respiratory: Reports: cough (present for 1 month) Gastrointestinal: Reports: nausea (feels nauseated every time he stands up). Denies: abdominal pain, vomiting, diarrhea, constipation Genitourinary: Reports: urgency, frequency (peeing every 45m today) Musculoskeletal: Denies: back pain, neck pain Neurological: Denies: headache Endocrine: Reports: fatigue Past Medical History - Past Medical History Medical history: Reports: arthritis, cancer, coronary artery disease, diabetes, GERD, hyperlipidemia, hypertension, myocardial infarction, renal disease, thyroid disease Surgical history: Reports: cancer surgery, carotid endarterectomy, coronary bypass (CABG) Psychiatric history: Reports: no psych history - Social History Smoking Status: Former smoker Smokeless Tobacco Status: No Alcohol use: Reports: none Drug use: Reports: none Physical Exam - General Limitations: no limitations General appearance: alert, in no apparent distress - Head Head exam: atraumatic, normocephalic - Eye Eye exam: Present: normal appearance, PERRL - ENT ENT exam: normal exam, normal oropharynx, mucous membranes moist - Neck Neck exam: Present: normal inspection, full ROM - Chest Chest inspection: Present: normal inspection, symmetric chest wall rise - Respiratory Respiratory exam: Present: other (LLL crackles) - Cardiovascular Cardiovascular exam: Present: regular rate, normal rhythm - Abdominal Exam Abdominal exam: Present: soft, Non-Tender - Extremities Exam Extremities exam: Present: normal inspection, full ROM - Back Exam Back exam: Present: normal inspection, full ROM - Neurological Exam Neurological exam: Present: alert - Psychiatric Psychiatric exam: Present: normal affect, normal mood - Skin Skin exam: Present: warm, dry, intact Course Course Narrative: Pt has been complaining of weakness for the last several days and having difficulty taking care of himself. Fell today in the bathroom and was unable to get back up, had to get help back up from one of his sons. Was found in his own feces and had to be cleaned. [facility]. Will get weakness/cardiac workup and test his urine as he is complaining of urinary frequency today. Vital Signs Temperature 99.1 F 06/02/18 18:42 Pulse Rate 73 06/02/18 18:42 Respiratory Rate 22 06/02/18 18:42 Blood Pressure 153/67 06/02/18 18:42 O2 Sat by Pulse Oximetry 100 06/02/18 18:42 Temperature 99.3 F 06/02/18 19:59 Pulse Rate 71 06/02/18 19:59 Respiratory Rate 20 06/02/18 19:59 Blood Pressure 119/93 06/02/18 19:59 O2 Sat by Pulse Oximetry 99 06/02/18 19:59 Oxygen Delivery Oxygen Delivery Room Air Medical Decision Making - MDM Narrative Medical decision making narrative: Pts urine was concerning for UTI - large leukocyte esterase with WBC present. Pt will be admitted for weakness secondary to UTI and inability to care for self as pt lives at home alone and was found in his own feces after being down for an extended period of time. Pt remained stable while in the department. Pt was given a dose of rocephin while in the department. Pt and family verbalized understanding and agreement with the plan. Pt and family were given an opportunity to ask questions and all of their concerns were addressed. Spoke with hospitalist, Dr. 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 Will sign out patient to night team - Dr. Milind Mcmillan, see her note for full disposition. - Medical Records Medical records reviewed: Yes I reviewed the patient's medical records. - Lab Data Lab results reviewed: Yes I reviewed the patient's lab results. Result diagrams: 06/02/18 19:07 06/02/18 19:07 Lab Results 06/02/18 06/02/18 06/02/18 Range/Units 19:07 19:07 19:07 WBC 5.8 (4.3-11.1) K/mcL RBC 3.64 L (4.19-5.50) M/mcL Hgb 10.1 L (12.9-16.9) g/dL Hct 30.4 L (37.5-50.1) % MCV 83.5 (83.0-100.0) fL MCH 27.7 L (28.0-33.3) pg MCHC 33.2 (31.6-35.5) g/dL RDW 15.3 H (11.5-14.5) % Plt Count 69 L (140-400) K/mcL MPV 9.0 L (9.4-12.4) fL Immature Gran % 0.3 (0-4) % Seg Neutrophils % 78.8 % Lymphocytes % 14.4 % Monocytes % 5.9 % Eosinophils % 0.3 % Basophils % 0.3 % Neutrophils # 4.6 (1.6-8.9) K/mcL Lymphocytes # 0.8 (0.6-4.6) K/mcL Monocytes # 0.3 (0.0-1.3) K/mcL Eosinophils # 0.0 (0.0-0.6) K/mcL Basophils # 0.0 (0.0-0.2) K/mcL Immature Plt Fraction 1.3 (1.1-6.1) % Sodium 138 (136-145) mEq/L Potassium 3.8 (3.5-5.1) mEq/L Chloride 100 (98-107) mEq/L Carbon Dioxide 26 (23-29) mEq/L BUN 31 H (8-23) mg/dL Creatinine 1.82 H (0.70-1.30) mg/dL Est GFR ( Amer) 43 L (> 60) Est GFR (Non-Af Amer) 35 L (> 60) BUN/Creatinine Ratio 17 (6-26) Glucose 191 H (70-105) mg/dL Calculated Osmolality 298 (280-300) Lactic Acid 0.9 (0.5-2.2) mmol/L Calcium 9.2 (8.6-10.3) mg/dL Total Bilirubin 1.1 H (0.3-1.0) mg/dL AST 20 (13-39) Units/L ALT 19 (7-52) Units/L Alkaline Phosphatase 151 H (34-104) Units/L Creatine Kinase 32 (30-223) Units/L Troponin I 0.06 H* (< 0.04) ng/mL Serum Total Protein 6.6 (6.4-8.9) g/dL Albumin 4.1 (3.5-5.7) g/dL Globulin 2.5 (2.4-3.5) g/dL Albumin/Globulin Ratio 1.6 (1.1-2.2) Urine Color (Yellow) Urine Clarity (Clear) Urine pH (5.0-8.0) pH Units Ur Specific [place] (1.010-1.025) Urine Protein (Neg-Trace) mg/dL Urine Glucose (UA) (Normal) mg/dL Urine Ketones (Negative) mg/dL Urine Blood (Negative) Urine Nitrite (Negative) Urine Bilirubin (Negative) Urine Urobilinogen (Normal) mg/dL Ur Leukocyte Esterase (Negative) Urine Microscopic RBC (0-3) per hpf Urine Microscopic WBC (0-3) per hpf Ur Squamous Epith Cells (None-Few) per lpf Urine Bacteria (None-Few) per hpf Hyaline Casts Urine Yeast Ur Culture Indicated? (NO) 06/02/18 Range/Units 19:27 WBC (4.3-11.1) K/mcL RBC (4.19-5.50) M/mcL Hgb (12.9-16.9) g/dL Hct (37.5-50.1) % MCV (83.0-100.0) fL MCH (28.0-33.3) pg MCHC (31.6-35.5) g/dL RDW (11.5-14.5) % Plt Count (140-400) K/mcL MPV (9.4-12.4) fL Immature Gran % (0-4) % Seg Neutrophils % % Lymphocytes % % Monocytes % % Eosinophils % % Basophils % % Neutrophils # (1.6-8.9) K/mcL Lymphocytes # (0.6-4.6) K/mcL Monocytes # (0.0-1.3) K/mcL Eosinophils # (0.0-0.6) K/mcL Basophils # (0.0-0.2) K/mcL Immature Plt Fraction (1.1-6.1) % Sodium (136-145) mEq/L Potassium (3.5-5.1) mEq/L Chloride (98-107) mEq/L Carbon Dioxide (23-29) mEq/L BUN (8-23) mg/dL Creatinine (0.70-1.30) mg/dL Est GFR ( Amer) (> 60) Est GFR (Non-Af Amer) (> 60) BUN/Creatinine Ratio (6-26) Glucose (70-105) mg/dL Calculated Osmolality (280-300) Lactic Acid (0.5-2.2) mmol/L Calcium (8.6-10.3) mg/dL Total Bilirubin (0.3-1.0) mg/dL AST (13-39) Units/L ALT (7-52) Units/L Alkaline Phosphatase (34-104) Units/L Creatine Kinase (30-223) Units/L Troponin I (< 0.04) ng/mL Serum Total Protein (6.4-8.9) g/dL Albumin (3.5-5.7) g/dL Globulin (2.4-3.5) g/dL Albumin/Globulin Ratio (1.1-2.2) Urine Color Yellow (Yellow) Urine Clarity Turbid A (Clear) Urine pH 6.5 (5.0-8.0) pH Units Ur Specific [place] 1.008 L (1.010-1.025) Urine Protein 30 H (Neg-Trace) mg/dL Urine Glucose (UA) Normal (Normal) mg/dL Urine Ketones Negative (Negative) mg/dL Urine Blood Moderate H (Negative) Urine Nitrite Negative (Negative) Urine Bilirubin Negative (Negative) Urine Urobilinogen Normal (Normal) mg/dL Ur Leukocyte Esterase Large H (Negative) Urine Microscopic RBC 5-15 H (0-3) per hpf Urine Microscopic WBC TNTC H (0-3) per hpf Ur Squamous Epith Cells Few (None-Few) per lpf Urine Bacteria Many H (None-Few) per hpf Hyaline Casts Test Not Performed Urine Yeast Test Not Performed Ur Culture Indicated? YES A (NO) - Radiology Data Radiology results reviewed: Yes I reviewed the patient's radiology results. Chest X-Ray 06/02/18 18:53 IMPRESSION: Linear infiltrates in the left base similar to the previous exam could represent scarring or fibrosis. Otherwise, stable chest D/ / Asif Torres MD / Asif Torres MD Interpreting Provider: Asif Torres MD - EKG Data EKG #1 EKG attestation: Yes I reviewed and interpreted this EKG. EKG results narrative: HR 73, rhythm sinus, axis normal. [place] 206 and prolonged, QRS 88, QTc 428. 2mm ST depression in V5, 1mm ST depression in V6. No evidence of LVH.
[2018-06-02 19:17] LABS: Basophils % 0.3 %; Eosinophils % 0.3 %; Monocytes % 5.9 %
[2018-06-02 19:18] LABS: Hematocrit 30.4 % (37.5-50.1); Hemoglobin 10.1 g/dL (12.9-16.9); Immature Granulocytes % 0.3 % (0-4); Immature Platelets 1.3 % (1.1-6.1); Lymphocytes # 0.8 K/mcL (0.6-4.6); Lymphocytes % 14.4 %; Mean Corpuscular HGB Conc 33.2 g/dL (31.6-35.5); Mean Corpuscular Hemoglobin 27.7 pg (28.0-33.3); Mean Corpuscular Volume 83.5 fL (83.0-100.0); Monocytes # 0.3 K/mcL (0.0-1.3); Neutrophils # 4.6 K/mcL (1.6-8.9); Red Blood Count 3.64 M/mcL (4.19-5.50); Red Cell Distribution Width 15.3 % (11.5-14.5); Segmented Neutrophils % 78.8 %
[2018-06-02 19:19] LABS: Platelet Count 69 K/mcL (140-400)
[2018-06-02 19:38] LABS: Albumin 4.1 g/dL (3.5-5.7); Albumin/Globulin Ratio 1.6 (1.1-2.2); Bilirubin,Total 1.1 mg/dL (0.3-1.0); Calcium 9.2 mg/dL (8.6-10.3); Globulin 2.5 g/dL (2.4-3.5); Potassium 3.8 mEq/L (3.5-5.1); Total Protein 6.6 g/dL (6.4-8.9)
[2018-06-02 19:40] LABS: Bilirubin,Urine Negative (Negative); Blood,Urine Moderate (Negative); Clarity,Urine Turbid (Clear); Color,Urine Yellow (Yellow); Glucose,Urine (UA) Normal (Normal); Ketones,Urine Negative (Negative); Leukocyte Esterase,Urine Large (Negative); Nitrite,Urine Negative (Negative); PH,Urine 6.5 pH Units (5.0-8.0); Protein,Urine 30 mg/dL (Neg-Trace); Specific Gravity,Urine 1.008 (1.010-1.025); Urobilinogen,Urine Normal (Normal)
[2018-06-02 19:42] LABS: Bacteria,Urine Many per hpf (None-Few); WBC,Urine TNTC per hpf (0-3)
[2018-06-02 19:44] LABS: Troponin I 0.06 ng/mL (< 0.04)
[2018-06-02] MEDS ORDERED: Aspirin 325 MG TABLET PO ONE ×2 (19:57)
[2018-06-02 19:59] LABS: Squamous Epithelial Cell,Urine Few per lpf (None-Few)
[2018-06-02] MEDS ORDERED: cefTRIAXone 1,000 MG in Water for inj. (sterile) 20 ML 10 ML IVP ONE (20:03)
[2018-06-02 20:58] LABS: INR 1.3; Prothrombin Time 14.8 Seconds (9.4-12.1)
[2018-06-02 21:00] LABS: Activated Partial Thrombo Time 33.1 Seconds (26.0-36.0)
[2018-06-03] MEDS ORDERED: Acetaminophen 325 MG TABLET PO PRN (01:11)
[2018-06-03] MEDS ORDERED: traMADol 50 MG TABLET PO PRN (01:11)
[2018-06-03] MEDS ORDERED: D5% in Water 1,000 ML IVC PRN (01:11)
[2018-06-03] MEDS ORDERED: Naloxone 0.4 MG/ML INJ IVP PRN (01:11)
[2018-06-03] MEDS ORDERED: Dextrose Gel 15 GM/37.5 ML TUBE PO PRN ×2 (01:11)
[2018-06-03] MEDS ORDERED: *HR* Dextrose 50 % in Water (Syg) 50 ML SYRINGE IVP PRN (01:11)
[2018-06-03] MEDS: 0.9 % Sodium Chloride 1,000 ML IVC SCH ×2 (01:53→15:46)
--- NOTE | 2018-06-03 02:44 | Internal Med History&Physical ---
Date of Encounter: 06/03/18 Time of Encounter: 00:30 Internal Medicine - H&P: HPI Chief complaint: s/p fall; UTI; weakness Admitted From: Emergency Dept Plans for Post Hospital Care: Home History of present illness: Mr. Winn is a 87 year old male who presents to the ER tonight with complaints of weakness, status post fall, and UTI. He fell earlier yesterday afternoon and was unable to pick himself up off the floor. He waited around for a while until his son could come over and assist him. He went to the [place] urgent care, but they were closed and he was sent to the ER. Workup in the ER revealed patient to have evidence of UTI, troponin elevation, and no other focal issues or findings. Given the fact that he fell and hit his head, he underwent CT scan of the head which was negative. He was subsequently admitted to the hospitalist service. Upon my assessment of the patient, patient feels well and denies any concerns other than some dysuria symptoms and generalized weakness. He has no headache, no chest pain, no shortness of breath, no vomiting, no diarrhea, no nausea. He states he has been having difficulty ambulating and caring for himself at home. This is not new and symptoms have been progressively worsening over last several weeks. He lives alone, but his son checks on him frequently and helps him on an almost daily basis. Past Med Surg Social Fam HX - Past Medical History Attestation: Yes The following information was validated with the patient. Source: patient, old records reviewed, other (ER records) Medical history: arthritis, cancer, coronary artery disease, diabetes, GERD, hyperlipidemia, hypertension, myocardial infarction, renal disease, thyroid disease Additional medical history: anemia Psychiatric history: no psych history - Past Surgical History Surgical History: cancer surgery, carotid endarterectomy, cholecystectomy, coronary bypass (CABG) Additional surgical history: rotator cuff, stents - Social History Smoking Status: Former smoker Smokeless Tobacco Status: No Alcohol use: none Drug use: none Current living situation: Home - Independent Activity Level: Independent ambulation Recent Out of Country Travel Within the Last 8 Weeks: No - Family History Father Hx Family Cancer: Yes (leukemia) Brother Living Status: Hx Family Cardiac Disorders: Yes Internal Medicine - H&P: Meds Cholecalciferol (D-3) [Vitamin D] 1,000 unit PO HS 04/03/18 [History] Finasteride [Proscar] 5 mg PO DAILY 04/03/18 [History] Furosemide [Lasix] 40 mg PO DAILY 04/03/18 [History] Insulin Glargine,Hum.rec.anlog [Basaglar Kwikpen U-100] 12 unit SQ HS 04/03/18 [History] Levothyroxine [Synthroid] 100 mcg PO QPM 04/03/18 [History] Metoprolol [Lopressor] 75 mg PO BIDWM 04/03/18 [History] NIFEdipine [Adalat cc] 30 mg PO DAILY 04/03/18 [History] Pantoprazole Sodium [Protonix] 40 mg PO DAILY 04/03/18 [History] Potassium Chloride [K-Tab ER] 10 meq PO QPM 04/03/18 [History] Atorvastatin [Lipitor] 40 mg PO HS 04/21/18 [History] Insulin ASPART [NovoLOG] 0 unit SQ TIDAC 04/21/18 [History] Melatonin [Melatin] 3 mg PO HS 04/21/18 [History] Tamsulosin HCl [Flomax] 0.4 mg PO HS 04/21/18 [History] Clopidogrel Bisulfate [Plavix] 75 mg PO DAILY #30 tablet 04/23/18 [Rx] Isosorbide MONOnitrate (24 HR) [Imdur] 60 mg PO DAILY #30 tab.er.24h 04/23/18 [Rx] Aspirin 81 mg PO QPM 06/02/18 [History] Allergy/AdvReac Type Severity Reaction Status Date / Time pseudoephedrine AdvReac Shakiness Verified 04/03/18 10:27 [From Sudafed] triprolidine [From Actifed] AdvReac Shakiness Verified 04/03/18 10:27 - Constitutional Constitutional: weakness, weight loss, no chills, no fever(s), no night sweats - EENT Eyes: no blurry vision, no change in vision Ears: no ear pain, no tinnitus Nose, mouth and throat: no nasal congestion, no sinus pressure, no sore throat - Cardiovascular Cardiovascular ROS IM: no chest pain, no dyspnea, no dyspnea on exertion, no edema, no orthopnea, no syncope - Respiratory Respiratory: no hemoptysis, no chest congestion, no excessive phlegm production, no change in phlegm color - Gastrointestinal Gastrointestinal: no abdominal pain, no diarrhea, no hematemesis, no hematochezia, no nausea, no vomiting - Genitourinary Genitourinary ROS male: dysuria, urinary frequency, urinary urgency, no flank pain, no hematuria - Musculoskeletal Musculoskeletal ROS IM: no arthralgias, no back pain - Integumentary Integumentary IM: no rash, no jaundice - Neurological Neurological ROS: frequent falls, no convulsions, no dizziness, no focal weakness, no headache(s), no tremor(s) - Psychiatric Psychiatric: no anxiety, no depression - Endocrine Endocrine IM: no cold intolerance, no heat intolerance, no polydipsia, no polyphagia, no polyuria - Hematologic/Lymphatic Hematologic/Lymphatic: easy bruising - Allergic/Immunologic Allergic/Immunologic: no GI upset with certain foods - Constitutional Vitals: Temp Pulse Resp BP Pulse Ox 98.6 F 73 17 126/62 97 06/02/18 21:37 06/02/18 21:37 06/02/18 21:37 06/02/18 21:37 06/02/18 21:37 General appearance: Present: cooperative, A&O X 3, pleasant, no acute distress, answers questions appropriately Exam: hard of hearing; no acute distress - Head Head exam: Present: atraumatic, normal inspection - Eye Eye exam: Present: EOMI, PERRL. Absent: scleral icterus Pupils: Present: normal accommodation - ENT ENT exam: Present: mucous membranes dry, normal exam, normal oropharynx - Neck Neck exam general surgery: Present: full ROM, supple. Absent: tenderness, nuchal rigidity, thyromegaly - Respiratory Respiratory exam: Present: CTAB. Absent: chest wall tenderness, rales, rhonchi, wheezes - Cardiovascular Cardiovascular exam: Present: distant heart sounds, RRR, +S1, +S2. Absent: diastolic murmur, systolic murmur - GI/Abdominal GI/Abdominal exam: Present: normal bowel sounds, soft, tenderness (mild suprapubic pain). Absent: guarding, hepatomegaly, mass, splenomegaly - Extremities Exam Extremities exam: Present: full ROM, normal capillary refill, warm, radial pulses palpable and symmetrical. Absent: calf tenderness, joint swelling, pedal edema, tenderness - Back Exam Back exam: Absent: CVA tenderness (L), CVA tenderness (R) - Neurological Exam Neurological exam: Present: alert, CN II-XII intact, oriented X3, no focal deficits, strengths equal and symetr throughout - Psychiatric Psychiatric exam: Present: normal affect, normal mood - Skin Skin exam: Present: dry, intact, warm Internal Med - H&P Results - Labs CBC & Chem 7: 06/02/18 19:07 06/02/18 19:07 Labs: Short CBC 06/02/18 Range/Units 19:07 WBC 5.8 (4.3-11.1) K/mcL Hgb 10.1 L (12.9-16.9) g/dL Hct 30.4 L (37.5-50.1) % Plt Count 69 L (140-400) K/mcL Neutrophils # 4.6 (1.6-8.9) K/mcL BMP 06/02/18 19:07 Sodium 138 Potassium 3.8 Chloride 100 Carbon Dioxide 26 BUN 31 H Creatinine 1.82 H Glucose 191 H Calcium 9.2 Cardiac Enzymes 06/02/18 Range/Units 19:07 Troponin I 0.06 H* (< 0.04) ng/mL Liver Function 06/02/18 Range/Units 19:07 Total Bilirubin 1.1 H (0.3-1.0) mg/dL AST 20 (13-39) Units/L ALT 19 (7-52) Units/L Alkaline Phosphatase 151 H (34-104) Units/L Albumin 4.1 (3.5-5.7) g/dL Urine 06/02/18 Range/Units 19:27 Urine Color Yellow (Yellow) Urine Clarity Turbid A (Clear) Urine pH 6.5 (5.0-8.0) pH Units Ur Specific [place] 1.008 L (1.010-1.025) Urine Protein 30 H (Neg-Trace) mg/dL Urine Glucose (UA) Normal (Normal) mg/dL - EKG Data -: EKG Interpreted by Myself - EKG Data Prior EKG available for review: no EKG comments: 06/03/18 02:48 NSR; subtle ST-T depression in lateral leads - Impressions ITS Impressions Chest X-Ray 06/02/18 18:53 IMPRESSION: Linear infiltrates in the left base similar to the previous exam could represent scarring or fibrosis. Otherwise, stable chest D/ / Asif Torres MD / Asif Torres MD Interpreting Provider: Asif Torres MD Head CT 06/02/18 18:58 IMPRESSION: No acute intracranial abnormality. Diffuse atrophic changes with findings suggesting chronic microvascular ischemia Partial opacification left maxillary sinus and right frontal sinus, correlate for signs of infection D/ / Asif Torres MD / Asif Torres MD Interpreting Provider: Asif Torres MD - Diagnostic Studies Chest x-ray Status: image reviewed by me (negative) - Assessment and plan (1) UTI (urinary tract infection) Current Visit: Yes Status: Acute Assessment and plan: 1. Will treat with Rocephin daily and follow urine culture. 2. IVF for hydration. 3. Pain control with Tylenol for now. Caution using sedating meds given fall risk. Qualifiers: Urinary tract infection type: acute cystitis Hematuria presence: with hematuria Qualified Code(s): N30.01 - Acute cystitis with hematuria (2) Weakness Current Visit: Yes Status: Chronic Assessment and plan: 1. Consult PT/OT after cardiac monitoring. 2. Patient may need rehab facility prior to D/C home. (3) Fall Current Visit: Yes Status: Acute Assessment and plan: 1. PT/OT as above. 2. Consult drug abuse social worker for D/C planning. Qualifiers: Encounter type: initial encounter Qualified Code(s): W19.XXXA - Unspecified fall, initial encounter (4) Troponin level elevated Current Visit: Yes Status: Acute Assessment and plan: 1. Patient denies chest pain. 2. Will trend troponins and monitor on telemetry. 3. Continue home meds as appropriate. 4. Consult cardiology if troponins rise or he develops ACS symptoms. (5) DVT prophylaxis Current Visit: Yes Status: Acute Assessment and plan: 1. EPCD's.
[2018-06-03 03:00] LABS: INR 1.4; Prothrombin Time 15.4 Seconds (9.4-12.1)
[2018-06-03 03:03] LABS: Activated Partial Thrombo Time 29.6 Seconds (26.0-36.0); Albumin/Globulin Ratio 1.6 (1.1-2.2); Bilirubin,Total 0.9 mg/dL (0.3-1.0); Calcium 9.1 mg/dL (8.6-10.3); Globulin 2.5 g/dL (2.4-3.5); Magnesium 1.7 mg/dL (1.6-2.6); Potassium 4.1 mEq/L (3.5-5.1); Total Protein 6.5 g/dL (6.4-8.9)
[2018-06-03] MEDS: Insulin LISPRO 300 UNITS/3 ML VIAL SQ SCH ×4 (08:05→21:23)
[2018-06-03] MEDS: cefTRIAXone 1,000 MG in Water for inj. (sterile) 20 ML 10 ML IVP SCH (08:06)
[2018-06-03] MEDS: Isosorbide MONOnitrate (24 HR) 60 MG TAB.ER.24H PO SCH (08:06)
[2018-06-03] MEDS: Finasteride 5 MG TABLET PO SCH (08:06)
[2018-06-03 08:36] LABS: Estimated Average Glucose 163 mg/dl; Hemoglobin A1C 7.3 %
[2018-06-03 09:39] LABS: Basophils % 0.2 %; Hematocrit 27.5 % (37.5-50.1); Hemoglobin 9.1 g/dL (12.9-16.9); Immature Granulocytes % 0.2 % (0-4); Lymphocytes # 0.4 K/mcL (0.6-4.6); Lymphocytes % 9.2 %; Mean Corpuscular HGB Conc 33.1 g/dL (31.6-35.5); Mean Corpuscular Hemoglobin 27.7 pg (28.0-33.3); Mean Corpuscular Volume 83.6 fL (83.0-100.0); Mean Platelet Volume 9.9 fL (9.4-12.4); Monocytes # 0.3 K/mcL (0.0-1.3); Monocytes % 5.8 %; Neutrophils # 3.8 K/mcL (1.6-8.9); Red Blood Count 3.29 M/mcL (4.19-5.50); Red Cell Distribution Width 15.1 % (11.5-14.5); Segmented Neutrophils % 84.6 %
[2018-06-03 09:40] LABS: Platelet Count 48 K/mcL (140-400)
[2018-06-03 09:41] LABS: Platelet Estimate Decreased (Normal)
--- NOTE | 2018-06-03 10:03 | Internal Med Progress Note ---
<Waleska Diana - Last Filed: 06/03/18 10:19> Hospitalist Progress Note - Encounter Date of Encounter: 06/03/18 - Exam Vitals: Temp Pulse Resp BP Pulse Ox 99.9 F H 81 16 126/52 95 06/03/18 07:50 06/03/18 07:50 06/03/18 07:50 06/03/18 07:50 06/03/18 07:50 - Assessment and Plan (1) Weakness Current Visit: Yes Status: Chronic (2) UTI (urinary tract infection) Current Visit: Yes Status: Acute (3) Fall Current Visit: Yes Status: Acute (4) Troponin level elevated Current Visit: Yes Status: Acute (5) DVT prophylaxis Current Visit: Yes Status: Acute - Time Spent with Patient Total time spent is greater than 50% in coordination of care (as documented) at patient's floor/unit and/or counseling patient: Internal Medicine: Result - Labs CBC & Chem 7: 06/03/18 08:54 06/03/18 02:16 Labs: Short CBC 06/02/18 06/03/18 Range/Units 19:07 08:54 WBC 5.8 4.5 (4.3-11.1) K/mcL Hgb 10.1 L 9.1 L (12.9-16.9) g/dL Hct 30.4 L 27.5 L (37.5-50.1) % Plt Count 69 L 48 L (140-400) K/mcL Neutrophils # 4.6 3.8 (1.6-8.9) K/mcL BMP 06/02/18 06/03/18 19:07 02:16 Sodium 138 137 Potassium 3.8 4.1 Chloride 100 99 Carbon Dioxide 26 24 BUN 31 H 32 H Creatinine 1.82 H 1.83 H Glucose 191 H 224 H Calcium 9.2 9.1 Cardiac Enzymes 06/02/18 06/03/18 06/03/18 Range/Units 19:07 02:16 08:54 Troponin I 0.06 H* 0.06 H* 0.09 H* (< 0.04) ng/mL Liver Function 06/02/18 06/03/18 Range/Units 19:07 02:16 Total Bilirubin 1.1 H 0.9 (0.3-1.0) mg/dL AST 20 20 (13-39) Units/L ALT 19 18 (7-52) Units/L Alkaline Phosphatase 151 H 150 H (34-104) Units/L Albumin 4.1 4.0 (3.5-5.7) g/dL Urine 06/02/18 Range/Units 19:27 Urine Color Yellow (Yellow) Urine Clarity Turbid A (Clear) Urine pH 6.5 (5.0-8.0) pH Units Ur Specific [place] 1.008 L (1.010-1.025) Urine Protein 30 H (Neg-Trace) mg/dL Urine Glucose (UA) Normal (Normal) mg/dL - ABG Interpretation ABG results: PT/INR, D-dimer PT 15.4 Seconds (9.4-12.1) H 06/03/18 02:16 - Impressions Impressions Chest X-Ray 06/02/18 18:53 IMPRESSION: Linear infiltrates in the left base similar to the previous exam could represent scarring or fibrosis. Otherwise, stable chest D/ / Asif Torres MD / Asif Torres MD Interpreting Provider: Asif Torres MD Head CT 06/02/18 18:58 IMPRESSION: No acute intracranial abnormality. Diffuse atrophic changes with findings suggesting chronic microvascular ischemia Partial opacification left maxillary sinus and right frontal sinus, correlate for signs of infection D/ / Asif Torres MD / Asif Torres MD Interpreting Provider: Asif Torres MD Consult Discharge Plan - Plan [facility]errals: [facility] [Primary Care Provider] - - Attending Attestation The history, physical exam, and medical decision making was performed by medical student Ahsan either while I was physically present and actively involved or I personally re-performed the exam and medical decision making. I have verified the accuracy of the medical student's documentation with regards to the history, physical exam findings, and medical decision making. Mr Winn is being observed for generalized weakness, elevated trop with history of CAD and recent AR, and being treated for suspected UTI Awake in bed, very pleasant, hard of hearing but converses without difficulty with hearing aides in. Denies any fevers, chills, bladder pain, dysuria. Admits to increased urinary freq. Aware trop is elevated, notes he had heart attack last month. He denies any chest pain, pressure, sob, n/v,diaphoresis. Notes feeling generally weak and tired bt no focal deficits. he was to have cards appt for fu tomorrow and is asking to see them while here. Denies sinus pain or congestion gen- alert, awake,appears stated age eyes- pupils equal round cv- reg rate and rhythm, normal s1,s2, no murmurs appreciated, no le edema, no jvd lungs- ctabl, no wheezing, rhonchi or crackles, normal resp effort on room air abd- soft, non tender, non distended, + bs neuro- AAOx3, CN grossly intact, no focal deficits Generalized weakness without focal deficit- may be related to suspected UTI, also CAD with recent ACS may contribute Had fall at home that was NOT syncope per pt -CT head neg, neuro exam without focal deficits -cont suspected UTI treatment -cardiac work up as below -pt/ot/sw/fall precautions Suspected UTI, no leukocytosis, no fever- cont rocephin, ucx pending, IVFs scheduled to stop after 2 bags Elevated trop with Hx CAD- asx NSTEMI 03/2018, hx CABG and PCIs -ekg personally reviewed and isolate TWI III otherwise no acute changes, NSR -most recent echo 04/22/18 reviewed Normal ef, mild DD, no sig alve dysfunction -trop trend 0.06 and now 0.09, trend to peak, cont tele, will consult his cards as recent AR and was to follow up tomorrow, not on heparin gtt, trop is significantly lower than most recent trops -cont home asa , statin, BB, nitrate, plavix, not on acei/arb i suspect given ckd, given BP normotensive admitter held nifedipine and will hold this morning, add as BP permits DM- cont home long acting + ssi and accuchekcs Chronic anemia- appears to be at baseline, hemodynamically stable and no overt bleeding- cont to monitor, scds only as on asa + plavix + fall risk with chronic anemia CKD, 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 Winn was awake and lying comfortably in bed upon entering the room. Mr. Winn admits dysuria, increased urinary frequency, and mild generalized weakness today which he states has improved since admission. Patient denies any chest pain, shortness of breath, palpitations, fever/chills, flank pain, constipation, diarrhea, nausea. Patient states his son is suppose to come in today at some point to visit him. - Exam Vitals: Temp Pulse Resp BP Pulse Ox 99.9 F H 81 16 126/52 95 06/03/18 07:50 06/03/18 07:50 06/03/18 07:50 06/03/18 07:50 06/03/18 07:50 Exam: Gen: NAD, AAOx3, pleasant HEENT: Normocephalic, atraumatic, EOMI Neck: Supple, trachea midline Cardiac: RRR, no murmur, no rubs, no gallops, S1 and S2+, No pedal edema Pulmonary: CTA B/L, no rhonchi, rales, wheezing Abdomen: soft, non-tender, non-distended, +bowel sounds Skin: warm, dry, intact, no erythema. Neuro: no facial droop, symmetric strength bilaterally UE's and LE's, no dysarthria Psych: Normal mood and affect - Assessment and Plan (1) UTI (urinary tract infection) Current Visit: Yes Status: Acute Assessment and Plan: Continue to treat with Rocephin (day 2) and follow urine culture and check for new growth IVF for hydration, watch for overload, home Lasix held Tylenol for pain. Avoid using sedating meds if possible due to fall risk (2) Weakness Current Visit: Yes Status: Chronic Assessment and Plan: Consult PT/OT after cardiac monitoring. Patient may need rehab facility prior to D/C home. Patient states feeling of generalized weakness but on exam his strength was 5/5 B/L in UE's and LE's. (3) Fall Current Visit: Yes Status: Acute Assessment and Plan: Fall was unwitnessed, patient denied pre-syncopal symptoms, chest pain, heart palpitations Patient states the fall was mechanical and his walker slipped forward on the bathroom floor CT head shows no acute intracranial abnormalities PT/OT as above Consult delinquency prevention social worker for D/C planning. (4) Troponin level elevated Current Visit: No Status: Acute Assessment and Plan: Patient denies chest pain. Troponins 0.06 on 06/02 @ 1907, 0.06 on 06/03 @216, 0.09 on 06/03 @ 1854 Monitor trops this afternoon, Continue to monitor on telemetry. Continue home meds as appropriate. Hold nifedipine Consult cardiology due to cardiac history DVT Prophylaxis: SubQ heparin - Time Spent with Patient Total time spent is greater than 50% in coordination of care (as documented) at patient's floor/unit and/or counseling patient: Internal Medicine: Result - Labs CBC & Chem 7: 06/03/18 08:54 06/03/18 02:16 Labs: Short CBC 06/02/18 06/03/18 Range/Units 19:07 08:54 WBC 5.8 4.5 (4.3-11.1) K/mcL Hgb 10.1 L 9.1 L (12.9-16.9) g/dL Hct 30.4 L 27.5 L (37.5-50.1) % Plt Count 69 L 48 L (140-400) K/mcL Neutrophils # 4.6 3.8 (1.6-8.9) K/mcL BMP 06/02/18 06/03/18 19:07 02:16 Sodium 138 137 Potassium 3.8 4.1 Chloride 100 99 Carbon Dioxide 26 24 BUN 31 H 32 H Creatinine 1.82 H 1.83 H Glucose 191 H 224 H Calcium 9.2 9.1 Cardiac Enzymes 06/02/18 06/03/18 Range/Units 19:07 02:16 Troponin I 0.06 H* 0.06 H* (< 0.04) ng/mL Liver Function 06/02/18 06/03/18 Range/Units 19:07 02:16 Total Bilirubin 1.1 H 0.9 (0.3-1.0) mg/dL AST 20 20 (13-39) Units/L ALT 19 18 (7-52) Units/L Alkaline Phosphatase 151 H 150 H (34-104) Units/L Albumin 4.1 4.0 (3.5-5.7) g/dL Urine 06/02/18 Range/Units 19:27 Urine Color Yellow (Yellow) Urine Clarity Turbid A (Clear) Urine pH 6.5 (5.0-8.0) pH Units Ur Specific [place] 1.008 L (1.010-1.025) Urine Protein 30 H (Neg-Trace) mg/dL Urine Glucose (UA) Normal (Normal) mg/dL - ABG Interpretation ABG results: PT/INR, D-dimer PT 15.4 Seconds (9.4-12.1) H 06/03/18 02:16 - Impressions Impressions Chest X-Ray 06/02/18 18:53 IMPRESSION: Linear infiltrates in the left base similar to the previous exam could represent scarring or fibrosis. Otherwise, stable chest D/ / Asif Torres MD / Asif Torres MD Interpreting Provider: Asif Torres MD Head CT 06/02/18 18:58 IMPRESSION: No acute intracranial abnormality. Diffuse atrophic changes with findings suggesting chronic microvascular ischemia Partial opacification left maxillary sinus and right frontal sinus, correlate for signs of infection D/ / Asif Torres MD / Asif Torres MD Interpreting Provider: Asif Torres MD <Waleska Diana - Last Filed: 06/03/18 10:19> (2) UTI (urinary tract infection) Qualifiers: Urinary tract infection type: acute cystitis Hematuria presence: with hematuria Qualified Code(s): N30.01 - Acute cystitis with hematuria (3) Fall Qualifiers: Encounter type: initial encounter Qualified Code(s): W19.XXXA - Unspecified fall, initial encounter <Dean Foreman - Last Filed: 06/03/18 17:05> (1) UTI (urinary tract infection) Qualifiers: Urinary tract infection type: acute cystitis Hematuria presence: with hematuria Qualified Code(s): N30.01 - Acute cystitis with hematuria (3) Fall Qualifiers: Encounter type: initial encounter Qualified Code(s): W19.XXXA - Unspecified fall, initial encounter
[2018-06-03] MEDS: Aspirin 81 MG TAB.CHEW PO SCH (17:15)
[2018-06-03] MEDS ORDERED: Insulin DETEMIR 100 UNIT/ML X5UNITS SQ SCH (21:00)
[2018-06-03] MEDS ORDERED: NON-FORMULARY MEDICATION 1 EACH EACH (Insulin Glargine,Hum.Rec.Anlog [Basaglar Kwikpen U-1 SQ SCH (21:00)
[2018-06-03] MEDS: Melatonin 3 MG TABLET PO SCH (21:22)
[2018-06-03] MEDS: Cholecalciferol (D-3) 1,000 UNIT TABLET PO SCH (21:22)
[2018-06-04 05:42] LABS: Basophils % 0.3 %; Eosinophils % 0.3 %; Hemoglobin 8.2 g/dL (12.9-16.9); Immature Granulocytes % 0.3 % (0-4)
[2018-06-04 05:44] LABS: Hematocrit 24.5 % (37.5-50.1); Immature Platelets 1.6 % (1.1-6.1); Lymphocytes # 0.6 K/mcL (0.6-4.6); Lymphocytes % 18.3 %; Mean Corpuscular HGB Conc 33.5 g/dL (31.6-35.5); Mean Corpuscular Hemoglobin 27.8 pg (28.0-33.3); Mean Corpuscular Volume 83.1 fL (83.0-100.0); Mean Platelet Volume 9.7 fL (9.4-12.4); Monocytes # 0.3 K/mcL (0.0-1.3); Monocytes % 9.9 %; Neutrophils # 2.2 K/mcL (1.6-8.9); Red Blood Count 2.95 M/mcL (4.19-5.50); Red Cell Distribution Width 15.1 % (11.5-14.5); Segmented Neutrophils % 70.9 %
[2018-06-04 05:53] LABS: Platelet Count 56 K/mcL (140-400)
[2018-06-04 06:05] LABS: Troponin I 0.13 ng/mL (< 0.04)
[2018-06-04 06:18] LABS: Albumin 3.1 g/dL (3.5-5.7); Albumin/Globulin Ratio 1.4 (1.1-2.2); Bilirubin,Total 0.4 mg/dL (0.3-1.0); Calcium 8.2 mg/dL (8.6-10.3); Globulin 2.2 g/dL (2.4-3.5); Potassium 2.9 mEq/L (3.5-5.1); Total Protein 5.3 g/dL (6.4-8.9)
[2018-06-04 08:04] LABS: Magnesium 1.7 mg/dL (1.6-2.6)
[2018-06-04] MEDS: Insulin LISPRO 300 UNITS/3 ML VIAL SQ SCH ×4 (08:10→21:33)
[2018-06-04] MEDS: Finasteride 5 MG TABLET PO SCH (08:11)
[2018-06-04] MEDS: Isosorbide MONOnitrate (24 HR) 60 MG TAB.ER.24H PO SCH (08:11)
[2018-06-04] MEDS: cefTRIAXone 1,000 MG in Water for inj. (sterile) 20 ML 10 ML IVP SCH (08:12)
[2018-06-04] MEDS: Insulin DETEMIR 100 UNIT/ML X5UNITS SQ SCH ×2 (08:15→21:33)
--- NOTE | 2018-06-04 08:17 | Internal Med Progress Note ---
<Dean Foreman - Last Filed: 06/04/18 14:28> Hospitalist Progress Note - Encounter Date of Encounter: 06/04/18 Time of Encounter: 08:12 - Subjective Interval History: Mr. Winn was awake and lying comfortably in bed eating breakfast upon entering the room. Mr. Winn had the green emesis bag in hand but denied nausea and vomi ting today. Mr. Winn still admits increased urinary frequency, and mild generalized weakness which he says has improved since yesterday. Mr. Winn admits to nausea and vomiting yesterday afternoon. Patient denies any chest pain, shortness of breath, palpitations, fever/chills, flank pain, constipation, diarrhea. Patient states his son is coming to visit later today - Exam Vitals: Temp Pulse Resp BP Pulse Ox 97.6 F 62 18 112/58 99 06/04/18 07:43 06/04/18 07:43 06/04/18 07:43 06/04/18 07:43 06/04/18 07:43 Exam: Gen: NAD, AAOx3, pleasant HEENT: Normocephalic, atraumatic, EOMI Neck: Supple, trachea midline Cardiac: RRR, no murmur, no rubs, no gallops, S1 and S2+, No pedal edema Pulmonary: CTA B/L, no rhonchi, rales, wheezing Abdomen: soft, non-tender, non-distended, +bowel sounds Skin: warm, dry, intact, no erythema. Neuro: no facial droop, symmetric strength bilaterally UE's and LE's, no dysart hria Psych: Normal mood and affect - Assessment and Plan (1) UTI (urinary tract infection) Current Visit: Yes Status: Acute Assessment and Plan: Continue to treat with Rocephin (day 3) Urine culture shows gram negative rods >10,000 CFU/mL, awaiting sensitivities Tylenol for pain. Avoid using sedating meds if possible due to fall risk (2) Weakness Current Visit: Yes Status: Chronic Assessment and Plan: PT/OT consulted with recommendation to SNF after discharge. Patient may need rehab facility prior to D/C home. (3) Fall Current Visit: Yes Status: Acute Assessment and Plan: Fall was unwitnessed, patient denied pre-syncopal symptoms, chest pain, heart palpitations Patient states the fall was mechanical and his walker slipped forward on the bathroom floor CT head shows no acute intracranial abnormalities PT/OT consulted with OT highly recommending d/c to SNF and PT also recommending short term SNF. Consult socially responsible investment adviser for D/C planning. (4) Troponin level elevated Current Visit: Yes Status: Acute Assessment and Plan: Patient denies chest pain. Troponins 0.09 on 06/03 @ 1854 0.18 06/03 @ 2359, 0.13 06/04 @ 2359 Trops trending down, continue to monitor on telemetry. Continue home meds as appropriate. Cardiology consulted and anticipated signing off with patient to follow up with cards after outpatient after discharge (5) Hypokalemia Current Visit: No Status: Resolved Assessment and Plan: Potassium 3.4 40 meq potassium chloride PO one time Home Lasix held, watch for fluid overload (6) Thrombocytopenia Current Visit: No Status: Chronic Assessment and Plan: Chronic Currently hemodynamically stable and no overt bleeding identified currently taking aspirin and plavix. Patient is a fall risk so only scds Continue to monitor DVT Prophylaxis: Suquential compressions devices only currently taking aspirin and plavix and is a fall risk with chronic anemia - Time Spent with Patient Total time spent is greater than 50% in coordination of care (as documented) at patient's floor/unit and/or counseling patient: Internal Medicine: Result - Labs CBC & Chem 7: 06/04/18 04:45 06/04/18 10:56 Labs: Short CBC 06/03/18 06/04/18 Range/Units 08:54 04:45 WBC 4.5 3.1 L (4.3-11.1) K/mcL Hgb 9.1 L 8.2 L (12.9-16.9) g/dL Hct 27.5 L 24.5 L (37.5-50.1) % Plt Count 48 L 56 L (140-400) K/mcL Neutrophils # 3.8 2.2 (1.6-8.9) K/mcL BMP 06/04/18 04:45 Sodium 135 L Potassium 2.9 L Chloride 104 Carbon Dioxide 22 L BUN 35 H Creatinine 1.71 H Glucose 261 H Calcium 8.2 L Cardiac Enzymes 06/03/18 06/03/18 06/04/18 Range/Units 08:54 14:49 04:45 Troponin I 0.09 H* 0.18 H* 0.13 H* (< 0.04) ng/mL Liver Function 06/04/18 Range/Units 04:45 Total Bilirubin 0.4 (0.3-1.0) mg/dL AST 22 (13-39) Units/L ALT 20 (7-52) Units/L Alkaline Phosphatase 108 H (34-104) Units/L Albumin 3.1 L (3.5-5.7) g/dL - ABG Interpretation ABG results: PT/INR, D-dimer PT 15.4 Seconds (9.4-12.1) H 06/03/18 02:16 Consult Discharge Plan - Plan Referrals: [facility] [Primary Care Provider] - <Waleska Diana - Last Filed: 06/04/18 16:29> Hospitalist Progress Note - Encounter Date of Encounter: 06/04/18 - Exam Vitals: Temp Pulse Resp BP Pulse Ox 97.9 F 60 18 111/54 96 06/04/18 11:17 06/04/18 11:17 06/04/18 11:17 06/04/18 11:17 06/04/18 11:17 - Assessment and Plan (1) Weakness Current Visit: Yes Status: Chronic (2) UTI (urinary tract infection) Current Visit: Yes Status: Acute (3) Fall Current Visit: Yes Status: Acute (4) Troponin level elevated Current Visit: Yes Status: Acute (5) DVT prophylaxis Current Visit: Yes Status: Acute - Time Spent with Patient Total time spent is greater than 50% in coordination of care (as documented) at patient's floor/unit and/or counseling patient: Internal Medicine: Result - Labs CBC & Chem 7: 06/04/18 04:45 06/04/18 10:56 Labs: Short CBC 06/04/18 Range/Units 04:45 WBC 3.1 L (4.3-11.1) K/mcL Hgb 8.2 L (12.9-16.9) g/dL Hct 24.5 L (37.5-50.1) % Plt Count 56 L (140-400) K/mcL Neutrophils # 2.2 (1.6-8.9) K/mcL BMP 02/12/19 02/12/19 04:45 10:56 Sodium 135 L 133 L Potassium 2.9 L 3.4 L Chloride 104 101 Carbon Dioxide 22 L 22 L BUN 35 H 39 H Creatinine 1.71 H 1.80 H Glucose 261 H 368 H Calcium 8.2 L 8.3 L Cardiac Enzymes 06/04/18 Range/Units 04:45 Troponin I 0.13 H* (< 0.04) ng/mL Liver Function 06/04/18 Range/Units 04:45 Total Bilirubin 0.4 (0.3-1.0) mg/dL AST 22 (13-39) Units/L ALT 20 (7-52) Units/L Alkaline Phosphatase 108 H (34-104) Units/L Albumin 3.1 L (3.5-5.7) g/dL - ABG Interpretation ABG results: PT/INR, D-dimer PT 15.4 Seconds (9.4-12.1) H 06/03/18 02:16 - Attending Attestation The history, physical exam, and medical decision making was performed by medical student Ahsan either while I was physically present and actively involved or I personally re-performed the exam and medical decision making. I have verified the accuracy of the medical student's documentation with regards to the history, physical exam findings, and medical decision making. Mr Winn is being observed for generalized weakness, elevated trop with history of CAD and recent NH, and being treated for suspected UTI Awake in chair, very pleasant. no chest pain, pressure or sob. no bladder pain/back pain, n/v or fevers or chills. continued increased freq urination gen- alert, awake,appears stated age cv- reg rate and rhythm, normal s1,s2, no murmurs appreciated, no le edema lungs- ctabl, no wheezing, rhonchi or crackles, normal resp effort on room air abd- soft, non tender, non distended, + bs neuro- AAOx3, CN grossly intact, no focal deficits Generalized weakness without focal deficit- may be related to suspected UTI, also CAD with recent NSTEMI and suspect deconditioning Had fall at home that was NOT syncope per pt -CT head neg, neuro exam without focal deficits -cont suspected UTI treatment -cardiac work up as below -pt/ot/sw/fall precautions--rec for [facility] and SW [facility] Suspected UTI, no leukocytosis, no fever- cont rocephin, ucx pending Elevated trop with Hx CAD- asx NSTEMI 03/2018, hx CABG and PCIs Trops lower than last admit -trop trend peak 0.019 -has been evaluated by cards and they will see him outpt for follow up, no inpt further work up or intervention required -cont home asa , statin, BB, nitrate, plavix, not on acei/arb i suspect given ckd, given BP normotensive admitter held nifedipine and will cont to hold given low normotensive without it, add as BP permits DM, uncontrolled on home insulin- increased levemir given SSI requirements yesterday, currently 10 am/10 hs units Levemir, + SSI, cont to monitor Chronic anemia- appears to be at baseline, hemodynamically stable and no overt bleeding Chronic thrombocytopenia - cont to monitor, scds only as on asa + plavix + fall risk CKD, 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-1.8 - gentle IVFs on admit, cont to monitor, stable 1.8 thi admit <Dena Foreman M - Last Filed: 06/04/18 14:28> (1) UTI (urinary tract infection) Qualifiers: Urinary tract infection type: acute cystitis Hematuria presence: with hematuria Qualified Code(s): N30.01 - Acute cystitis with hematuria (3) Fall Qualifiers: Encounter type: initial encounter Qualified Code(s): W19.XXXA - Unspecified fall, initial encounter <Waleska Diana - Last Filed: 06/04/18 16:29> (2) UTI (urinary tract infection) Qualifiers: Urinary tract infection type: acute cystitis Hematuria presence: with hematur ia Qualified Code(s): N30.01 - Acute cystitis with hematuria (3) Fall Qualifiers: Encounter type: initial encounter Qualified Code(s): W19.XXXA - Unspecified fall, initial encounter
--- NOTE | 2018-06-04 09:30 | Cardiology Consult Note ---
<Karri Allen - Last Filed: 06/04/18 10:46> Date of Encounter: 06/04/18 Time of Encounter: 09:25 Assessment and Plan (1) Troponin level elevated Current Visit: Yes Status: Acute Patient presented with elevated troponins Did not present with chest pain or shortness of breath Troponins fluctuating since admission, still below baseline from previous records Plan Troponins likely elevated secondary to UTI/Fall/CKD Patient not demonstrating acute EKG changes or clinical ACS symptoms Recommend continuing current medical management regimen Recommend following outpatient after discharge Anticipate signing off Further recommendations per Dr. Guzman (2) CAD (coronary artery disease) Current Visit: No Status: Chronic Chronic CAD, troponin likely elevated due to infection/impaired clearance due to CKD Less likely acute ischemia, no ACS symptoms or EKG concerns Plan as seen above Qualifiers: Coronary Disease-Associated Artery/Lesion type: [place] artery [place] vs. transplanted heart: elem heart Associated angina: without angina Qualified Code(s): I25.10 - Atherosclerotic heart disease of [place] coronary artery without angina pectoris (3) CKD (chronic kidney disease) Current Visit: No Status: Chronic Chronic Impaired troponin clearance Management per primary team Qualifiers: Chronic kidney disease stage: stage 3 (moderate) Qualified Code(s): N18.3 - Chronic kidney disease, stage 3 (moderate) (4) UTI (urinary tract infection) Current Visit: Yes Status: Acute Likely contributing to troponins Primary team treating with [place] Qualifiers: Urinary tract infection type: acute cystitis Hematuria presence: with hematuria Qualified Code(s): N30.01 - Acute cystitis with hematuria (5) Fall Current Visit: Yes Status: Acute Patient denies syncopal episode, fall most likely mechanical secondary to weakness No signs of arrhythmia or cardiac cause of fall Patient working with PT/OT per primary team Qualifiers: Encounter type: initial encounter Qualified Code(s): W19.XXXA - Unspecified fall, initial encounter Discussion w patient/family: The assessment and plan as outlined above was discussed with the patient and/or family members who expressed understanding and agreement. All questions were answered. Thank you for involving us in the care of your patient. Please call with any questions. History of Present Illness Consult date: 06/03/18 Requesting physician: Janet Mustafa Consult reason: Elevated Troponins, Recent NSTEMI Chief complaint: Weakness, Fall History of present illness: Mr. Winn is a 87 year old male with a past medical history of Gallbladder Cancer, CAD, DM, GERD, HLD, HTN, CKD, CABG 2010, PCI 2011, and recent NSTEMI. He was admitted from the ED 04/01 for weakness, fall, UTI. CXR and CT Head were stable, positive UA, and positive troponins. His troponins ranged from 0.06 to 0.18. Cardiology was consulted for elevated troponins in the setting of recent NSTEMI. On exam the patient denies having chest pain or shortness of breath or any other ACS symptoms. He states he requested cardiology consult because he was supposed to follow up in clinic if he had not been admitted. On last admission he was seen for NSTEMI. He was treated conservatively because of gallbladder cancer he is requesting no intervention for. He was treated with medical management which he has continued since discharge. He states he has no other concerns to report. Past Med Surg Social Fam HX - Past Medical History Medical history: arthritis, cancer, coronary artery disease, diabetes, GERD, hyperlipidemia, hypertension, myocardial infarction, renal disease, thyroid disease Additional medical history: anemia Psychiatric history: no psych history - Past Surgical History Surgical History: cancer surgery, carotid endarterectomy, cholecystectomy, coronary bypass (CABG) Additional surgical history: rotator cuff, stents - Social History Smoking Status: Former smoker Smokeless Tobacco Status: No Alcohol use: none Drug use: none - Family History Brother Living Status: Hx Family Cardiac Disorders: Yes Father Hx Family Cancer: Yes (leukemia) Medications and Allergies RX: Cholecalciferol (D-3) [Vitamin D] 1,000 unit PO HS 04/03/18 [History] RX: Finasteride [Proscar] 5 mg PO DAILY 04/03/18 [History] RX: Furosemide [Lasix] 40 mg PO DAILY 04/03/18 [History] RX: Insulin Glargine,Hum.rec.anlog [Basaglar Kwikpen U-100] 12 unit SQ HS 04/03/18 [History] RX: Levothyroxine [Synthroid] 100 mcg PO QPM 04/03/18 [History] RX: Metoprolol [Lopressor] 75 mg PO BIDWM 04/03/18 [History] RX: NIFEdipine [Adalat cc] 30 mg PO DAILY 04/03/18 [History] RX: Pantoprazole Sodium [Protonix] 40 mg PO DAILY 04/03/18 [History] RX: Potassium Chloride [K-Tab ER] 10 meq PO QPM 04/03/18 [History] RX: Atorvastatin [Lipitor] 40 mg PO HS 04/21/18 [History] RX: Insulin ASPART [NovoLOG] 0 unit SQ TIDAC 04/21/18 [History] RX: Melatonin [Melatin] 3 mg PO HS 04/21/18 [History] RX: Tamsulosin HCl [Flomax] 0.4 mg PO HS 04/21/18 [History] Clopidogrel Bisulfate [Plavix] 75 mg PO DAILY #30 tablet 04/23/18 [Rx] Isosorbide MONOnitrate (24 HR) [Imdur] 60 mg PO DAILY #30 tab.er.24h 04/23/18 [Rx] RX: Aspirin 81 mg PO QPM 06/02/18 [History] Allergy/AdvReac Type Severity Reaction Status Date / Time pseudoephedrine AdvReac Shakiness Verified 04/03/18 10:27 [From Sudafed] triprolidine [From Actifed] AdvReac Shakiness Verified 04/03/18 10:27 All Systems Review: The remainder of the systems were reviewed and are negative - Constitutional Constitutional: no chills, no fever(s) - Cardiovascular Cardiovascular: no chest pain at rest, no chest pain with exertion, no mariano phoresis, no dyspnea at rest, no palpitations - Respiratory Respiratory: no cough, no dyspnea - Gastrointestinal Gastrointestinal: no abdominal pain - Genitourinary Genitourinary: dysuria - Musculoskeletal Musculoskeletal: no myalgias - Integumentary Integumentary: no unusual bruising - Neurological Neurological: no abnormal speech, no focal weakness Physical Examination Vital Signs, Last 4 Hours Temp Pulse Resp BP Pulse Ox 06/04/18 08:30 99 06/04/18 07:43 97.6 F 62 18 112/58 99 06/04/18 05:45 97.9 F 68 17 103/61 97 General: Conversant, No Apparent Distress, Other (Patient is hard of hearing ) HEENT: Atraumatic, Mucus Membranes Moist Neck: No JVD Cardiac: Reg Rate and Rhythm, Normal S1 and S2, No Murmur Lungs: Normal Breath Sounds, No Wheeze, Rales, Rhonchi Neuro: Alert and responsive, No focal deficits noted Abdomen: Soft, Non-Tender Skin: No rashes noted on visualized skin Musculoskeletal: No Chest Wall Tenderness Extremities: No Edema, Normal Pulses Other: While in the room patient was working with PT/OT who was able to get the patient up to edge of bed without difficulty. Results 06/04/18 04:45 06/04/18 04:45 Lab Results 06/03/18 06/03/18 06/03/18 08:54 08:54 14:49 WBC 4.5 Hgb 9.1 L Hct 27.5 L Plt Count 48 L Sodium Potassium Chloride Carbon Dioxide BUN Creatinine Glucose Calcium Magnesium Total Bilirubin AST ALT Alkaline Phosphatase Troponin I 0.09 H* 0.18 H* 06/04/18 06/04/18 04:45 04:45 WBC 3.1 L Hgb 8.2 L Hct 24.5 L Plt Count 56 L Sodium 135 L Potassium 2.9 L Chloride 104 Carbon Dioxide 22 L BUN 35 H Creatinine 1.71 H Glucose 261 H Calcium 8.2 L Magnesium 1.7 Total Bilirubin 0.4 AST 22 ALT 20 Alkaline Phosphatase 108 H Troponin I 0.13 H* - Imaging and Cardiology Chest Xray: report reviewed - EKG Interpretation EKG results cardiology: personally reviewed, sinus rhythm, no diagnostic ischemia Consult Discharge Plan - Plan [facility]errals: [facility] [Primary Care Provider[facility] - <Suri Guzman - Last Filed: 06/04/18 13:23> Date of Encounter: 06/04/18 - Attending Attestation I examined this patient and my medical decision-making was reviewed with the Resident Physician. I agree with the documented findings, disposition and treatment plan as described except to the extent set forth below. 87 YOM with hx of CABG 2010, PCI 2011 here for UTI found to have mildly elevated trops after a recent NSTEMI. Preserved EF recently and started on medical management with no planned intervention. Patient denies any chest pain but feels weak and tired currently being treated for UTI. Continue medical mangement and follow up with cardiology as an OP. Assessment and Plan Discussion w patient/family: The assessment and plan as outlined above was discussed with the patient and/or family members who expressed understanding and agreement. All questions were answered. Thank you for involving us in the care of your patient. Please call with any questions. History of Present Illness History of present illness: Mr. Winn is a 87 year old male All Systems Review: The remainder of the systems were reviewed and are negative Physical Examination Vital Signs, Last 4 Hours Temp Pulse Resp BP Pulse Ox 06/04/18 11:17 97.9 F 60 18 111/54 96 Results 06/04/18 04:45 06/04/18 10:56 Lab Results 06/03/18 06/04/18 06/04/18 14:49 04:45 04:45 WBC 3.1 L Hgb 8.2 L Hct 24.5 L Plt Count 56 L Sodium 135 L Potassium 2.9 L Chloride 104 Carbon Dioxide 22 L BUN 35 H Creatinine 1.71 H Glucose 261 H Calcium 8.2 L Magnesium 1.7 Total Bilirubin 0.4 AST 22 ALT 20 Alkaline Phosphatase 108 H Troponin I 0.18 H* 0.13 H* 06/04/18 10:56 WBC Hgb Hct Plt Count Sodium 133 L Potassium 3.4 L Chloride 101 Carbon Dioxide 22 L BUN 39 H Creatinine 1.80 H Glucose 368 H Calcium 8.3 L Magnesium Total Bilirubin AST ALT Alkaline Phosphatase Troponin I
[2018-06-04 11:29] LABS: Calcium 8.3 mg/dL (8.6-10.3); Potassium 3.4 mEq/L (3.5-5.1)
[2018-06-04] MEDS ORDERED: Potassium Chloride Elixir 20 MEQ/15 ML UDC PO ONE (15:52)
[2018-06-04] MEDS: Aspirin 81 MG TAB.CHEW PO SCH (17:05)
--- NOTE | 2018-06-04 18:45 | Electrocardiograph Report ---
[address] [address] Test Date: 2018-06-03 Pat Name: Dean Winn Department: 112 Room: 2A41 Gender: M Public Stenographer: : 1930 Requested By: [id number] Order Number: [id number] Reading MD: Leidy Ren Measurements Intervals [place] Rate: 77 P: 7 [place]: 176 QRS: 12 QRSD: 92 T: -30 QT: 384 QTc: 416 Interpretive Statements SINUS RHYTHM WITH SINUS ARRHYTHMIA NONSPECIFIC ST & T-WAVE ABNORMALITY Electronically Signed On 06-04-2018 18:43:39 EST by Leidy Ren
--- NOTE | 2018-06-04 20:39 | Electrocardiograph Report ---
[address] [address] Test Date: 2018-06-02 Pat Name: Dean Winn Department: EXAM5 Room: 2A41 Gender: M Slip Feeder: : 1930 Requested By: Nel Eli Order Number: [id number] Reading MD: Leidy Ren Measurements Intervals [place] Rate: 70 P: 56 [place]: 183 QRS: 57 QRSD: 100 T: 37 QT: 438 QTc: 473 Interpretive Statements Sinus rhythm Nonspecific ST-T wave changes Electronically Signed On 06-04-2018 20:37:59 EST by Leidy Ren
--- NOTE | 2018-06-04 20:50 | Electrocardiograph Report ---
[address] [place], [place] [address] Test Date: 2018-06-03 Pat Name: Dean Winn Department: 112 Room: 2A41 Gender: M Foam Tank Laminator: : 1930 Requested By: Jose Martin Vides Order Number: [id number] Reading MD: Amelia Tapia Measurements Intervals [place] Rate: 95 P: 64 [place]: 175 QRS: 27 QRSD: 94 T: 17 QT: 363 QTc: 416 Interpretive Statements SINUS RHYTHM WITH OCCASIONAL SUPRAVENTRICULAR PREMATURE COMPLEXES ST DEPRESSION, CONSIDER SUBENDOCARDIAL INJURY Electronically Signed On 06-04-2018 20:48:59 EST by Amelia Tapia
[2018-06-04] MEDS: Cholecalciferol (D-3) 1,000 UNIT TABLET PO SCH (21:32)
[2018-06-04] MEDS: Melatonin 3 MG TABLET PO SCH (21:33)
[2018-06-05 08:01] VITALS: BP 146/55
[2018-06-05 08:22] LABS: Basophils % 0.4 %; Immature Granulocytes % 0.4 % (0-4); Mean Corpuscular Volume 83.5 fL (83.0-100.0)
[2018-06-05 08:24] LABS: Eosinophils # 0.1 K/mcL (0.0-0.6); Eosinophils % 4.8 %; Hematocrit 24.3 % (37.5-50.1); Hemoglobin 8.1 g/dL (12.9-16.9); Immature Platelets 2.2 % (1.1-6.1); Lymphocytes # 0.5 K/mcL (0.6-4.6); Lymphocytes % 19.9 %; Mean Corpuscular HGB Conc 33.3 g/dL (31.6-35.5); Mean Corpuscular Hemoglobin 27.8 pg (28.0-33.3); Mean Platelet Volume 10.1 fL (9.4-12.4); Monocytes # 0.2 K/mcL (0.0-1.3); Monocytes % 8.9 %; Neutrophils # 1.8 K/mcL (1.6-8.9); Red Blood Count 2.91 M/mcL (4.19-5.50); Red Cell Distribution Width 15.1 % (11.5-14.5); Segmented Neutrophils % 65.6 %
[2018-06-05 08:28] LABS: Platelet Count 57 K/mcL (140-400)
[2018-06-05 08:36] LABS: Calcium 8.6 mg/dL (8.6-10.3); Magnesium 1.8 mg/dL (1.6-2.6); Potassium 3.8 mEq/L (3.5-5.1)
[2018-06-05] MEDS: Insulin DETEMIR 100 UNIT/ML X5UNITS SQ SCH (09:08)
[2018-06-05] MEDS: Insulin LISPRO 300 UNITS/3 ML VIAL SQ SCH ×2 (09:08→11:49)
[2018-06-05] MEDS: cefTRIAXone 1,000 MG in Water for inj. (sterile) 20 ML 10 ML IVP SCH (09:09)
[2018-06-05] MEDS: Isosorbide MONOnitrate (24 HR) 60 MG TAB.ER.24H PO SCH (09:09)
[2018-06-05] MEDS: Finasteride 5 MG TABLET PO SCH (09:09)
--- NOTE | 2018-06-05 11:47 | Discharge Summary ---
<Janet Mustafa - Last Filed: 06/05/18 12:24> Orders not resulted at time of discharge: Pending orders 06/04/18 21:48 Occult Blood,Stool [BF] Routine Date of Encounter: 06/05/18 Hospital course: Mr. Winn is a 87 year old male - Time Spent with Patient Total time spent providing and/or coordinating discharge services: - Discharge Medications Home Medications: Cholecalciferol (D-3) [Vitamin D] 1,000 unit PO HS 04/03/18 [History] Finasteride [Proscar] 5 mg PO DAILY 04/03/18 [History] Furosemide [Lasix] 40 mg PO DAILY 04/03/18 [History] Levothyroxine [Synthroid] 100 mcg PO QPM 04/03/18 [History] Metoprolol [Lopressor] 75 mg PO BIDWM 04/03/18 [History] NIFEdipine [Adalat cc] 30 mg PO DAILY 04/03/18 [History] Pantoprazole Sodium [Protonix] 40 mg PO DAILY 04/03/18 [History] Potassium Chloride [K-Tab ER] 10 meq PO QPM 04/03/18 [History] Atorvastatin [Lipitor] 40 mg PO HS 04/21/18 [History] Insulin ASPART [NovoLOG] 0 unit SQ TIDAC 04/21/18 [History] Melatonin [Melatin] 3 mg PO HS 04/21/18 [History] Tamsulosin HCl [Flomax] 0.4 mg PO HS 04/21/18 [History] Clopidogrel Bisulfate [Plavix] 75 mg PO DAILY #30 tablet 04/23/18 [Rx] Isosorbide MONOnitrate (24 HR) [Imdur] 60 mg PO DAILY #30 tab.er.24h 04/23/18 [Rx] Aspirin 81 mg PO QPM 06/02/18 [History] Acetaminophen [Tylenol] 650 mg PO Q6HR PRN tablet 06/05/18 [Rx] Ertapenem [INVanz] 500 mg IM DAILY #10 vial 06/05/18 [Rx] Insulin DETEMIR [Levemir] 10 unit SQ BID [id number] 06/05/18 [Rx] Allergies/Adverse Reactions: Allergy/AdvReac Type Severity Reaction Status Date / Time pseudoephedrine AdvReac Shakiness Verified 04/03/18 10:27 [From Sudafed] triprolidine [From Actifed] AdvReac Baltazarkiness Verified 04/03/18 10:27 Date of admission: 06/03/18 18:18 [facility] Consults: 06/03/18 07:42 Consult to Occupational Therapy [CONS] Routine Comment: Evaluate, develop and implement POC Reason for Consult: assess mobility/home needs Does patient have active BEDREST order?: No Is patient medically & hemodynamically stable?: Yes Patient assessed for mobility or mobilized this visit?: Yes Consult to Physical Therapy [CONS] Routine Comment: Evaluate, develop and implement POC Reason for Consult: mobility needs Does patient have active BEDREST order?: No Is patient medically & hemodynamically stable?: Yes Patient assessed for mobility or mobilized this visit?: Yes 06/03/18 09:00 Consult to Training Executive [CONS] Routine Reason for SW Consult: Pt lives home alone. On waiting list for home health [facility] [place]. Pt has fallen multiple times at home. 06/03/18 14:32 Consult to Cardiology [CONS] Routine Comment: Consulting Provider: Cardiology Carin Reason for Consult: elevated troponins, history of recent NSTEMI Call Completed: Yes - Constitutional Vitals: Temp Pulse Resp BP Pulse Ox 97.7 F 65 16 146/55 97 06/05/18 07:55 06/05/18 07:55 06/05/18 07:55 06/05/18 07:55 06/05/18 07:55 General appearance: Present: cooperative, A&O X 3, pleasant, no acute distress, answers questions appropriately - Patient Status Disposition: Transfer SNF Condition: Fair Functional capacity at discharge: uses cane/walker Overall status at discharge: patient is progressing back to baseline - Discharge Instructions Instructions: Urinary Tract Infection in Men (DC), Fall Prevention (DC) Follow [facility] With: [facility] [Primary Care Provider] - - Diet and Activity Activity: as per physical therapy <Mendez Montano - Last Filed: 06/05/18 19:29> Orders not resulted at time of discharge: Pending orders 06/04/18 21:48 Occult Blood,Stool [BF] Routine Date of Encounter: 06/05/18 - Discharge Diagnosis (1) Weakness Priority: Secondary Status: Chronic (2) UTI (urinary tract infection) Priority: Primary Status: Acute Qualifiers: Urinary tract infection type: acute cystitis Hematuria presence: with hematuria Qualified Code(s): N30.01 - Acute cystitis with hematuria (3) Fall Priority: Secondary Status: Acute Qualifiers: Encounter type: subsequent encounter Qualified Code(s): W19.XXXD - Unspecified fall, subsequent encounter (4) Troponin level elevated Priority: Secondary Status: Acute (5) DVT prophylaxis Priority: Secondary Status: Acute (6) CAD (coronary artery disease) Priority: Secondary Status: Chronic Qualifiers: Coronary Disease-Associated Artery/Lesion type: [place] artery [place] vs. transplanted heart: [place] heart Associated angina: without angina Qualified Code(s): I25.10 - Atherosclerotic heart disease of [place] coronary artery without angina pectoris (7) CKD (chronic kidney disease) Priority: Secondary Status: Chronic Qualifiers: Chronic kidney disease stage: stage 3 (moderate) Qualified Code(s): N18.3 - Chronic kidney disease, stage 3 (moderate) (8) DM (diabetes mellitus) Priority: Secondary Status: Chronic Qualifiers: Diabetes mellitus type: type 2 Diabetes mellitus mcfp insulin use: with mcfp use Diabetes mellitus complication status: with hyperglycemia Qualified Code(s): E11.65 - Type 2 diabetes mellitus with hyperglycemia; Z79.4 - FPC (current) use of insulin (9) Hypertension Priority: Secondary Status: Chronic Qualifiers: Hypertension type: essential hypertension Qualified Code(s): I10 - Essential (primary) hypertension (10) Hypothyroidism Priority: Secondary Status: Chronic Qualifiers: Hypothyroidism type: acquired Qualified Code(s): E03.9 - Hypothyroidism, unspecified Hospital course: Mr. Winn is a 87 year old male - Time Spent with Patient Total time spent providing and/or coordinating discharge services: 37min Date of admission: 06/03/18 18:18 [facility] physician: [facility] Consults: 06/03/18 07:42 Consult to Occupational Therapy [CONS] Routine Comment: Evaluate, develop and implement POC Reason for Consult: assess mobility/home needs Does patient have active BEDREST order?: No Is patient medically & hemodynamically stable?: Yes Patient assessed for mobility or mobilized this visit?: Yes Consult to Physical Therapy [CONS] Routine Comment: Evaluate, develop and implement POC Reason for Consult: mobility needs Does patient have active BEDREST order?: No Is patient medically & hemodynamically stable?: Yes Patient assessed for mobility or mobilized this visit?: Yes 06/03/18 09:00 Consult to Training Executive [CONS] Routine Reason for SW Consult: Pt lives home alone. On waiting list for home health through [place]. Pt has fallen multiple times at home. 06/03/18 14:32 Consult to Cardiology [CONS] Routine Comment: Consulting Provider: Cardiology Carin Reason for Consult: elevated troponins, history of recent NSTEMI Call Completed: Yes - Constitutional Vitals: Temp Pulse Resp BP Pulse Ox 97.7 F 65 16 146/55 97 06/05/18 07:55 06/05/18 07:55 06/05/18 07:55 06/05/18 07:55 06/05/18 07:55 - Attending Attestation I examined this patient and my medical decision-making was reviewed with the Resident Physician on 06/05/18. I agree with the documented findings, disposition and treatment plan as described except to the extent set forth below. Mr Winn has been admitted for acute encephalopathy. He has been found to have UTI - multi drug resistant. He is now afebrile and ready for discharge to SNF. Exam alert Comfortable Mucus membranes dry Heart not tachy No wheeze Abd soft Moves all extremities Pulse palpable Plan D/C to SNF today. <Dean Foreman - Last Filed: 06/05/18 20:56> Orders not resulted at time of discharge: Pending orders 06/04/18 21:48 Occult Blood,Stool [BF] Routine Date of Encounter: 06/05/18 Time of Encounter: 09:30 - Discharge Diagnosis (1) UTI (urinary tract infection) Status: Acute Qualifiers: Urinary tract infection type: acute cystitis Hematuria presence: with hematuria Qualified Code(s): N30.01 - Acute cystitis with hematuria (2) Weakness Status: Chronic (3) Fall Status: Acute Qualifiers: Encounter type: subsequent encounter Qualified Code(s): W19.XXXD - Unspecified fall, subsequent encounter (4) Troponin level elevated Status: Acute (5) Thrombocytopenia Status: Chronic Hospital course: Mr. Winn is a 87 year old male - Time Spent with Patient Total time spent providing and/or coordinating discharge services: Date of admission: 06/03/18 18:18 Primary care physician: PCP [facility] Consults: 06/03/18 07:42 Consult to Occupational Therapy [CONS] Routine Comment: Evaluate, develop and implement POC Reason for Consult: assess mobility/home needs Does patient have active BEDREST order?: No Is patient medically & hemodynamically stable?: Yes Patient assessed for mobility or mobilized this visit?: Yes Consult to Physical Therapy [CONS] Routine Comment: Evaluate, develop and implement POC Reason for Consult: mobility needs Does patient have active BEDREST order?: No Is patient medically & hemodynamically stable?: Yes Patient assessed for mobility or mobilized this visit?: Yes 06/03/18 09:00 Consult to Training Executive [CONS] Routine Reason for SW Consult: Pt lives home alone. On waiting list for home health through [place]. Pt has fallen multiple times at home. 06/03/18 14:32 Consult to Cardiology [CONS] Routine Comment: Consulting Provider: Cardiology Carin Reason for Consult: elevated troponins, history of recent NSTEMI Call Completed: Yes - Constitutional Vitals: Temp Pulse Resp BP Pulse Ox 97.7 F 65 16 146/55 97 06/05/18 07:55 06/05/18 07:55 06/05/18 07:55 06/05/18 07:55 06/05/18 07:55 General appearance: Present: A&O X 0, A&O X 3, pleasant, no acute distress, answers questions appropriately Exam: Gen: NAD, AAOx3, pleasant HEENT: Normocephalic, atraumatic, EOMI Neck: Supple, trachea midline Cardiac: RRR, no murmur, no rubs, no gallops, S1 and S2+, No pedal edema Pulmonary: CTA B/L, no rhonchi, rales, wheezing Abdomen: soft, non-tender, non-distended, +bowel sounds Skin: warm, dry, intact, no erythema. Neuro: no facial droop, symmetric strength bilaterally UE's and LE's, no dysarthria Psych: Normal mood and affect
--- NOTE | 2018-06-05 12:06 | Physician Discharge Referral ---
ExtendedCare Referral Info Transfer To: [place] Provider in Charge after Transfer: PCP Institutional Level of Care: Skilled Prognosis: Good Aware of Diagnosis: Patient Aware of Prognosis: Family - Transfer Medications Home Medications: Cholecalciferol (D-3) [Vitamin D] 1,000 unit PO HS 04/03/18 [History] Finasteride [Proscar] 5 mg PO DAILY 04/03/18 [History] Furosemide [Lasix] 40 mg PO DAILY 04/03/18 [History] Levothyroxine [Synthroid] 100 mcg PO QPM 04/03/18 [History] Metoprolol [Lopressor] 75 mg PO BIDWM 04/03/18 [History] NIFEdipine [Adalat cc] 30 mg PO DAILY 04/03/18 [History] Pantoprazole Sodium [Protonix] 40 mg PO DAILY 04/03/18 [History] Potassium Chloride [K-Tab ER] 10 meq PO QPM 04/03/18 [History] Atorvastatin [Lipitor] 40 mg PO HS 04/21/18 [History] Insulin ASPART [NovoLOG] 0 unit SQ TIDAC 04/21/18 [History] Melatonin [Melatin] 3 mg PO HS 04/21/18 [History] Tamsulosin HCl [Flomax] 0.4 mg PO HS 04/21/18 [History] Clopidogrel Bisulfate [Plavix] 75 mg PO DAILY #30 tablet 04/23/18 [Rx] Isosorbide MONOnitrate (24 HR) [Imdur] 60 mg PO DAILY #30 tab.er.24h 04/23/18 [Rx] Aspirin 81 mg PO QPM 06/02/18 [History] Acetaminophen [Tylenol] 650 mg PO Q6HR PRN tablet 06/05/18 [Rx] Ertapenem [INVanz] 500 mg IM DAILY #10 vial 06/05/18 [Rx] Insulin DETEMIR [Levemir] 10 unit SQ BID [id number] 06/05/18 [Rx] Allergies/Adverse Reactions: Allergy/AdvReac Type Severity Reaction Status Date / Time pseudoephedrine AdvReac Shakiness Verified 04/03/18 10:27 [From Sudafed] triprolidine [From Actifed] AdvReac Shakiness Verified 04/03/18 10:27 - Respiratory Orders None Smoking Cessation: Smoking cessation has been advised. For more information, call the [place] Tobacco Quit Line at 3-916-AQJV-NOW. - Advance Directives Code Status: Full Code - Mobility Orders Ambulate - Rehabiliation Orders Rehab Potential: Good Rehab Orders: Evaluation for Physical Therapy, Evaluation for Occupational Therapy - Diet Orders No Concentrated Sweets, Cardiac CERTIFICATION: I certify that the transfer of the above named patient to an Extended Care Facility is necessary for the continuing treatment of the diagnosis listed. The above information is true and accurate reflection of patient's current condition. Confidential - Redisclosure prohibited without a patient's written consent.
== END 2018-06-05 12:29 | DRG 690 ==
LOC: 2ANU 18:39 → EMEROOARM 18:39 → SUATTDRO 21:06 → 2ANU 21:17 → SUATTDRO 06-03 18:18
PROVIDERS: ADMIT Pediatrics; ATTEND Internal Medicine